=== PATIENT | male | born 1935 | race African-American/Black ===

== ENCOUNTER 2017-02-09 03:46 | Inpatient (IN) | payer MEDICARE, OTHER ==
[2017-02-09] VITALS (7 sets, daily range): BP systolic 143–186; BP diastolic 67–104; PULSE 68–110; RESP 16–20; TEMP 97.7–99; O2SAT 97–100
[~2017-02-09] VITALS: Ht 185.4 cm; Wt 95.3 kg
[2017-02-09 04:18] LABS: AUTOMATED NEUTROPHIL # 3.4 TH/MM3 (1.8-7.7); BASOPHIL % 0.7 % (0.0-2.0); EOSINOPHIL # 0.2 TH/MM3 (0-0.4); EOSINOPHIL % 3.5 % (0.0-4.0); HEMATOCRIT 38.3 % (39.0-51.0); HEMOGLOBIN 12.6 GM/DL (13.0-17.0); LYMPH % 27.1 % (9.0-44.0); LYMPHOCYTE # 1.6 TH/MM3 (1.0-4.8); MEAN CELL VOLUME 86.3 FL (80.0-100.0); MEAN CORPUSCULAR HEMOGLOBIN 28.3 PG (27.0-34.0); MEAN CORPUSCULAR HGB CONC 32.8 % (32.0-36.0); MEAN PLATELET VOLUME 7.1 FL (7.0-11.0); MONO % 9.5 % (0.0-8.0); MONOCYTE # 0.6 TH/MM3 (0-0.9); NEUT % 59.2 % (16.0-70.0); PLATELET COUNT 275 TH/MM3 (150-450); RED BLOOD COUNT 4.44 MIL/MM3 (4.50-5.90); RED CELL DISTRIBUTION WIDTH 13.1 % (11.6-17.2); WHITE BLOOD COUNT 5.8 TH/MM3 (4.0-11.0)
[2017-02-09 04:36] LABS: ALT (GPT) 19 U/L (12-78); AST (GOT) 26 U/L (15-37); BICARBONATE 29.9 MEQ/L (21.0-32.0); BLOOD UREA NITROGEN 13 MG/DL (7-18); CALCIUM 9.5 MG/DL (8.5-10.1); CHLORIDE 103 MEQ/L (98-107); CREATININE 1.02 MG/DL (0.60-1.30); GLOMERULAR FILTRATION RATE 70 ML/MIN (>89); GLUCOSE,RANDOM 105 MG/DL (74-106); SODIUM (NA) 140 MEQ/L (136-145)
[2017-02-09 04:47] LABS: ALKALINE PHOSPHATASE 75 U/L (45-117); TOTAL BILIRUBIN ADULT 0.6 MG/DL (0.2-1.0); TOTAL PROTEIN 8.9 GM/DL (6.4-8.2)
--- NOTE | 2017-02-09 05:16 | PD ---
HPI Chief Complaint: Psychiatric Symptoms Time Seen by Provider: 04:05 Travel History International Travel<30 days: No Contact w/Intl Traveler<30days: No Traveled to known affect area: No History of Present Illness HPI 81-year-old black male presents to emergency department under G[place]a act by PD. According to G[place]a act the patient has been noncompliant with his medicines. He has been making statements that he was going to hurt his because she was stealing his money. He states that she and other women haven't been attempting to get his money. He states that he is not incompetent. According to medical record he suffers from Alzheimer's disease. Patient states that he is retired from the [employer]. He worked there for 35 years. He denies any toxic ingestions. No recent illness. He denies any drugs, alcohol or tobacco. No homicidal or suicidal ideation. PFSH Past Medical History Narrative Medical Alzheimer, hypertension, facial trauma Alzheimer's Disease: Yes Diminished Hearing: No Hypertension: Yes Tetanus Vaccination: Unknown Past Surgical History Surgical History: No Previous Surgery Social History Alcohol Use: No Tobacco Use: No Substance Use: No Allergies-Medications (Allergen,Severity, Reaction): Coded Allergies: No Known Allergies (Unverified , 02/09/17) Reported Meds & Prescriptions Reported Meds & Active Scripts Active Active Prescriptions or Reported Medications Unobtainable Review of Systems General / Constitutional: No: Fever Eyes: No: Visual changes HENT: No: Headaches Cardiovascular: No: Chest Pain or Discomfort Respiratory: No: Shortness of Breath Gastrointestinal: No: Abdominal Pain Genitourinary: No: Dysuria Musculoskeletal: No: Pain Skin: No Rash Neurologic: No: Weakness Psychiatric: Positive: Mood Disorder, No: Anxiety, Depression, Suicidal Ideations, Disorder of Thought, Substance Abuse, Homicidal Ideation Endocrine: No: Polydipsia Hematologic/Lymphatic: No: Easy Bruising Physical Exam Narrative GENERAL: Well-nourished, well-developed patient. SKIN: Warm and dry. HEAD: Patient has evidence of prior left facial trauma. His left eye is somewhat recessed. EYES: No scleral icterus. No injection or drainage. The left eye is irregular and the pupil is poorly responsive. Positive mucoid drainage of the left eye. ENT: No nasal drainage noted. Mucous membranes pink. Airway patent. NECK: Supple, trachea midline. Moves head freely without obvious discomfort. CARDIOVASCULAR: Regular rate and rhythm without murmurs, gallops, or rubs. RESPIRATORY: Breath sounds equal bilaterally. No accessory muscle use. GASTROINTESTINAL: Abdomen soft, non-tender, nondistended. EXTREMITIES: No cyanosis or edema. BACK: Nontender without obvious deformity. No CVA tenderness. NEURO: Patient is alert and oriented. no sensorimotor deficits. Nonfocal. Normal speech. PSYCH: No delusions. No auditory or visual hallucinations. Data Data Last Documented VS Vital Signs Date Time Temp Pulse Resp B/P (MAP) Pulse Ox O2 Delivery O2 Flow Rate FiO2 02/09/17 04:22 99.0 106 20 172/85 (114) 100 Orders Orders Complete Blood Count With Diff (02/09/17 04:05) Comprehensive Metabolic Panel (02/09/17 04:05) Thyroid Stimulating Hormone (02/09/17 04:05) Urinalysis - C+S If Indicated (02/09/17 04:05) Psych Screen (02/09/17 04:05) Drug Screen, Random Urine (02/09/17 04:05) Alcohol (Ethanol) (02/09/17 04:05) Labs Laboratory Tests Test 02/09/17 04:05 White Blood Count 5.8 TH/MM3 Red Blood Count 4.44 MIL/MM3 Hemoglobin 12.6 GM/DL Hematocrit 38.3 % Mean Corpuscular Volume 86.3 FL Mean Corpuscular Hemoglobin 28.3 PG Mean Corpuscular Hemoglobin Concent 32.8 % Red Cell Distribution Width 13.1 % Platelet Count 275 TH/MM3 Mean Platelet Volume 7.1 FL Neutrophils (%) (Auto) 59.2 % Lymphocytes (%) (Auto) 27.1 % Monocytes (%) (Auto) 9.5 % Eosinophils (%) (Auto) 3.5 % Basophils (%) (Auto) 0.7 % Neutrophils # (Auto) 3.4 TH/MM3 Lymphocytes # (Auto) 1.6 TH/MM3 Monocytes # (Auto) 0.6 TH/MM3 Eosinophils # (Auto) 0.2 TH/MM3 Basophils # (Auto) 0.0 TH/MM3 CBC Comment DIFF FINAL Differential Comment Blood Urea Nitrogen 13 MG/DL Creatinine 1.02 MG/DL Random Glucose 105 MG/DL Total Protein 8.9 GM/DL Albumin 4.0 GM/DL Calcium Level 9.5 MG/DL Alkaline Phosphatase 75 U/L Aspartate Amino Transf (AST/SGOT) 26 U/L Alanine Aminotransferase (ALT/SGPT) 19 U/L Total Bilirubin 0.6 MG/DL Sodium Level 140 MEQ/L Potassium Level 3.5 MEQ/L Chloride Level 103 MEQ/L Carbon Dioxide Level 29.9 MEQ/L Anion Gap 7 MEQ/L Estimat Glomerular Filtration Rate 70 ML/MIN Thyroid Stimulating Hormone 3rd Gen 1.470 uIU/ML Ethyl Alcohol Level LESS THAN 3 MG/DL MDM Medical Decision Making Medical Screen Exam Complete: Yes Emergency Medical Condition: Yes Medical Record Reviewed: Yes Interpretation(s) Laboratory Tests Test 02/09/17 04:05 White Blood Count 5.8 TH/MM3 Red Blood Count 4.44 MIL/MM3 Hemoglobin 12.6 GM/DL Hematocrit 38.3 % Mean Corpuscular Volume 86.3 FL Mean Corpuscular Hemoglobin 28.3 PG Mean Corpuscular Hemoglobin Concent 32.8 % Red Cell Distribution Width 13.1 % Platelet Count 275 TH/MM3 Mean Platelet Volume 7.1 FL Neutrophils (%) (Auto) 59.2 % Lymphocytes (%) (Auto) 27.1 % Monocytes (%) (Auto) 9.5 % Eosinophils (%) (Auto) 3.5 % Basophils (%) (Auto) 0.7 % Neutrophils # (Auto) 3.4 TH/MM3 Lymphocytes # (Auto) 1.6 TH/MM3 Monocytes # (Auto) 0.6 TH/MM3 Eosinophils # (Auto) 0.2 TH/MM3 Basophils # (Auto) 0.0 TH/MM3 CBC Comment DIFF FINAL Differential Comment Blood Urea Nitrogen 13 MG/DL Creatinine 1.02 MG/DL Random Glucose 105 MG/DL Total Protein 8.9 GM/DL Albumin 4.0 GM/DL Calcium Level 9.5 MG/DL Alkaline Phosphatase 75 U/L Aspartate Amino Transf (AST/SGOT) 26 U/L Alanine Aminotransferase (ALT/SGPT) 19 U/L Total Bilirubin 0.6 MG/DL Sodium Level 140 MEQ/L Potassium Level 3.5 MEQ/L Chloride Level 103 MEQ/L Carbon Dioxide Level 29.9 MEQ/L Anion Gap 7 MEQ/L Estimat Glomerular Filtration Rate 70 ML/MIN Thyroid Stimulating Hormone 3rd Gen 1.470 uIU/ML Ethyl Alcohol Level LESS THAN 3 MG/DL Differential Diagnosis MDM: High Differential diagnoses: Schizophrenia, schizoaffective disorder, bipolar, anxiety, depression, adjustment reaction, mood disorder NOS, ODD, depressive disorder NOS, dementia, dementia with agitation, psychosis NOS, substance induced mood disorder, DMDD, Asperger syndrome, infection,electrolyte abnormality, malingering. Narrative Course Mental health screening discussed with the patient. Psychiatric screen ordered. The patient is been medically cleared. This is medical clearance for psychiatric admission Diagnosis Primary Impression: Medical clearance for psychiatric admission Scripts Unable to Obtain Active Prescriptions or Reported Meds Condition: Eleazar Vaca Feb 09, 2017 05:16
[2017-02-09 07:04] LABS: BILIRUBIN, URINE NEG (NEG); BLOOD, URINE NEG (NEG); GLUCOSE,URINE NEG (NEG); KETONE, URINE TRACE mg/dL (NEG); MUCUS URINE FEW /lpf (OCC); NITRITE,URINE NEG (NEG); PH, URINE 6.5 (5.0-8.5); URINE COLOR YELLOW (YELLW/STRAW); URINE LEUKOCYTE ESTERASE NEG (NEG)
[2017-02-09] MEDS ORDERED: HYDR-3516 PO (08:58)
[2017-02-09] MEDS ORDERED: AMLO5TAB2 PO (08:58)
[2017-02-09] MEDS ORDERED: MELA5 PO (08:58)
[2017-02-09] MEDS ORDERED: DOCU100C15 PO (08:58)
[2017-02-09] MEDS ORDERED: MIRT30TA PO (08:58)
[2017-02-09] MEDS ORDERED: MAGNESIUM HYDROXIDE SUSP 30 ML CUP PO PRN (16:15)
[2017-02-09] MEDS ORDERED: ALUMINUM/MAGNESIUM/SIMETH 30 ML CUP PO PRN (16:15)
[2017-02-09] MEDS ORDERED: ACETAMINOPHEN 325 MG TAB PO PRN (16:15)
[2017-02-09] MEDS ORDERED: LORazepam 1 MG TAB PO PRN (16:15)
[2017-02-09] MEDS ORDERED: LORazepam 2 MG/ML VIAL IM PRN (16:15)
--- NOTE | 2017-02-09 16:23 | HHI.HP ---
Provisional Diagnosis Admission Date [place]. Dementia with behavioral disturbance Certification of Person's Competence To Provide Express and Informed Consent I have personally examined Zachariah Haile , a person being served at [facility], [place] on, Feb 09, 2017 16:13. Express and informed consent means consent voluntarily given in writing, by a competent person, after sufficient explanation and disclosure of the subject matter involved to enable the person to make a knowing and willful decision without any element of force, fraud, deceit, duress, or other form of constraint or coercion. This person is 18 years of age or older, is not now known to be incompetent to consent to treatment with a guardian advocate, and does not have a health care surrogate or proxy currently making medical treatment decisions. I have found this person to be one of the following: [] Competent to provide express and informed consent, as defined above, for voluntary admission to this facility and is competent to provide express and informed consent for treatment. He/she has the consistent capacity to make well reasoned, willful, and knowing decisions concerning his or her medical or mental health treatment. The person fully and consistently understands the purpose of the admission for examination/placement and is fully capable of personally exercising all rights assured [place] [X] Incompetent to provide express and informed consent to voluntary admission, and this is incompetent to provide express and informed consent to treatment. The person must be transferred to involuntary status and a petition for a guardian advocate filed with the Circuit Court. [] Refusing to provide express and informed consent to voluntary admission but is competent to provide express and informed consent for treatment. The person must be discharged or transferred to involuntary status. Form shall be completed within 24 hours of a person's arrival at the receiving facility and filed in the clinical record of each person: 1. Admitted on a voluntary basis 2. Permitted to provide express and informed consent to his/her own treatment 3. Allowed to transfer from involuntary to voluntary status 4. Prior to permitting a person to consent to his or her own treatment after having been previously found incompetent to consent to treatment. History of Present Illness Capacity: Lacks Capacity HPI 81-year-old male, well known to the staff here at [facility], being admitted under a Gatica act after threatening to kill his . Patient reported a voice told him not to kill her. However, he is stating to the emergency room physician and this physician that his of 45 years has been stealing his money. He also makes nonsensical statements such as paying for his daughter's Camaro, even though he is not allowed to drive, just because he feels like it. (His daughter states this is not true.) He has been noncompliant with his prescribed medications. He leaves his home without communicating with family members and apparently gets lost for significant periods of time. The patient is a poor historian and does not know where he is or his situation. He is disoriented to time, date, day as well. He is only oriented to person. He does state that his is stealing his money although there is no evidence to support this. He also reports he's been multiple times, although there is no evidence to support this either. He does not abuse alcohol or drugs. When contacted, his family feels they can no longer care for him at home. Apparently, in addition to not taking his medicines, he does not adequately eat or drink or sleep. He does appear under nourished. Review of Systems Psychiatric: COMPLAINS OF: Confusion, Mood changes, Agitation Except as stated in HPI: all other systems reviewed are Neg Past Psych History Psychological trauma history Unknown psychological trauma. Patient is a poor historian. Violence risk - others (6 mos) Moderate to high. Violence risk - self (6 mos) Moderate to high. Substance Abuse History Drugs/Alcohol past 12 months Denied. Past Family Social History Coded Allergies: No Known Allergies (Unverified , 02/09/17) Reported Medications Docusate Sodium (Docusate Sodium) 100 Mg Cap, 100 MG PO BID, #60 CAP 0 Refills 02/09/17 Melatonin (Melatonin) 5 Mg Tab, 3 MG PO HS for Provide Good Sleep, TAB 0 Refills 02/09/17 Hydrocodone-Acetaminophen (Hydrocodone-Acetaminophen) 5-325 mg Tab, 1 TAB PO Q6H Y for PAIN, TAB 0 Refills 02/09/17 Mirtazapine (Mirtazapine) 30 Mg Tab, 30 MG PO HS for Depression Control, #30 TAB 0 Refills 02/09/17 Amlodipine (Amlodipine) 5 Mg Tab, 5 MG PO DAILY for Blood Pressure Management, # 30 TAB 0 Refills 02/09/17 Family Psych History Unknown. Patient poor historian. Social History Patient usually does live with his and family. Family is supportive although may not be able to care for him in the future. Patient worked on the railroad for many years. He is retired and unemployed at this time. He denies a history of alcoholism and drug abuse. Patient's Strengths (min. 2) Verbal and has access to healthcare. Physical Exam GENERAL: SKIN: Warm and dry. HEAD: Normocephalic. EYES: No scleral icterus. No injection or drainage. NECK: Supple, trachea midline. No JVD or lymphadenopathy. CARDIOVASCULAR: Regular rate and rhythm without murmurs, gallops, or rubs. RESPIRATORY: Breath sounds equal bilaterally. No accessory muscle use. GASTROINTESTINAL: Abdomen soft, non-tender, nondistended. MUSCULOSKELETAL: No cyanosis, or edema. BACK: Nontender without obvious deformity. No CVA tenderness. Vital Signs Vital Signs Date Time Temp Pulse Resp B/P (MAP) Pulse Ox O2 Delivery O2 Flow Rate FiO2 02/09/17 10:19 110 20 160/104 (122) 97 Room Air 02/09/17 04:22 99.0 Lab Results Test 02/09/17 04:05 02/09/17 06:30 White Blood Count 5.8 TH/MM3 Red Blood Count 4.44 MIL/MM3 Hemoglobin 12.6 GM/DL Hematocrit 38.3 % Mean Corpuscular Volume 86.3 FL Mean Corpuscular Hemoglobin 28.3 PG Mean Corpuscular Hemoglobin Concent 32.8 % Red Cell Distribution Width 13.1 % Platelet Count 275 TH/MM3 Mean Platelet Volume 7.1 FL Neutrophils (%) (Auto) 59.2 % Lymphocytes (%) (Auto) 27.1 % Monocytes (%) (Auto) 9.5 % Eosinophils (%) (Auto) 3.5 % Basophils (%) (Auto) 0.7 % Neutrophils # (Auto) 3.4 TH/MM3 Lymphocytes # (Auto) 1.6 TH/MM3 Monocytes # (Auto) 0.6 TH/MM3 Eosinophils # (Auto) 0.2 TH/MM3 Basophils # (Auto) 0.0 TH/MM3 CBC Comment DIFF FINAL Differential Comment Blood Urea Nitrogen 13 MG/DL Creatinine 1.02 MG/DL Random Glucose 105 MG/DL Total Protein 8.9 GM/DL Albumin 4.0 GM/DL Calcium Level 9.5 MG/DL Alkaline Phosphatase 75 U/L Aspartate Amino Transf (AST/SGOT) 26 U/L Alanine Aminotransferase (ALT/SGPT) 19 U/L Total Bilirubin 0.6 MG/DL Sodium Level 140 MEQ/L Potassium Level 3.5 MEQ/L Chloride Level 103 MEQ/L Carbon Dioxide Level 29.9 MEQ/L Anion Gap 7 MEQ/L Estimat Glomerular Filtration Rate 70 ML/MIN Thyroid Stimulating Hormone 3rd Gen 1.470 uIU/ML Ethyl Alcohol Level LESS THAN 3 MG/DL Urine Color YELLOW Urine Turbidity CLEAR Urine pH 6.5 Urine Specific Marlin 1.017 Urine Protein TRACE mg/dL Urine Glucose (UA) NEG mg/dL Urine Ketones TRACE mg/dL Urine Occult Blood NEG Urine Nitrite NEG Urine Bilirubin NEG Urine Urobilinogen LESS THAN 2.0 MG/DL Urine Leukocyte Esterase NEG Urine RBC 6 /hpf Urine WBC 1 /hpf Urine Mucus FEW /lpf Microscopic Urinalysis Comment CULT NOT INDICATED Urine Opiates Screen NEG Urine Barbiturates Screen NEG Urine Amphetamines Screen NEG Urine Benzodiazepines Screen NEG Urine Cocaine Screen NEG Urine Cannabinoids Screen NEG Mental Status Examination Appearance: Disheveled Consciousness: Alert Orientation: Person Motor Activity: Normal gait Speech: Other Language: Adequate Fund of Knowledge: Inadequate Attention and Concentration: Easily Distracted Memory: Impaired Mood: Angry Affect: Labile Thought Process & Associations: Disorganized Thought Content: Hallucinations, Preoccupations, Delusional Hallucination Type: Auditory Delusion Type: None, Paranoid Suicidal Ideation: No Suicidal Plan: No Suicidal Intention: No Homicidal Ideation: Yes Homicidal Plan: Yes Homicidal Intention: No Insight: Poor Judgment: Poor Assessment & Plan Problem List: (1) Alzheimer's dementia with behavioral disturbance ICD Codes: G30.9 - Alzheimer's disease, unspecified; F02.81 - Dementia in other diseases classified elsewhere with behavioral disturbance (2) Dementia in other diseases classified elsewhere with behavioral disturbance ICD Codes: F02.81 - Dementia in other diseases classified elsewhere with behavioral disturbance Assessment & Plan Estimated LOS: days. 81-year-old male with obvious dementia, brought in under a Gatica act for threatening to kill his . Patient is experiencing auditory hallucinations and paranoid delusions that his is stealing from him. He has been noncompliant with his medications and not eating or drinking fluids adequately well. He is felt to be at high risk for harming others and not caring for himself. For these reasons he is being admitted for further evaluation and treatment. This physician has ordered a CBC and comprehensive metabolic panel to determine if any infectious process or metabolic process is causing or contributing to the patient's confusion, psychosis and agitation. Additionally, this physician has ordered a hep us consult to help stabilize the patient on his antihypertensive medicines, etc. The patient remains and competent to provide informed consent and therefore this physician filed civil commitment and guardian advocate paperwork. Also ordered were hemoglobin A1c and a lipid panel to determine if the patient is at risk for cardiovascular disease. Furthermore, this physician ordered thyroid stimulating hormone levels, vitamin B-12 levels and vitamin D level as deficiencies in these areas can also cause or contribute to his confusion and psychosis. An EKG was ordered to determine the patient's cardiac conduction status prior to significantly altering his psychotropic medicines which might adversely affect the electrical system of his heart. This physician spoke to nurse Hernandez regarding the patient's recent behavior. He requires much redirection. Finally, case management will also be involved to assist with further information gathering and disposition planning. Neptali Muro MD Feb 09, 2017 16:23
[2017-02-09] MEDS: MIRTAZAPINE 15 MG TAB PO SCH (21:00)
[2017-02-09] MEDS: DOCUSATE SODIUM 100 MG CAP PO SCH (21:00)
[2017-02-10 06:00] VITALS: BP 157/68; PULSE 71; RESP 17; TEMP 98.2; O2SAT 97
[2017-02-10] MEDS: DOCUSATE SODIUM 100 MG CAP PO SCH ×2 (08:10→20:32)
[2017-02-10] MEDS: amLODIPine BESYLATE 5 MG TAB PO SCH (08:10)
[2017-02-10 10:12] LABS: AUTOMATED NEUTROPHIL # 2.9 TH/MM3 (1.8-7.7); BASOPHIL % 0.6 % (0.0-2.0); EOSINOPHIL # 0.3 TH/MM3 (0-0.4); EOSINOPHIL % 5.9 % (0.0-4.0); HEMATOCRIT 38.8 % (39.0-51.0); LYMPH % 27.8 % (9.0-44.0); LYMPHOCYTE # 1.4 TH/MM3 (1.0-4.8); MEAN CORPUSCULAR HEMOGLOBIN 29.2 PG (27.0-34.0); MEAN CORPUSCULAR HGB CONC 33.5 % (32.0-36.0); MEAN PLATELET VOLUME 7.3 FL (7.0-11.0); MONO % 8.6 % (0.0-8.0); MONOCYTE # 0.4 TH/MM3 (0-0.9); NEUT % 57.1 % (16.0-70.0); PLATELET COUNT 279 TH/MM3 (150-450); RED BLOOD COUNT 4.46 MIL/MM3 (4.50-5.90); WHITE BLOOD COUNT 5.2 TH/MM3 (4.0-11.0)
[2017-02-10 10:34] LABS: ALBUMIN 3.5 GM/DL (3.4-5.0); AST (GOT) 21 U/L (15-37); BICARBONATE 31.5 MEQ/L (21.0-32.0); BLOOD UREA NITROGEN 12 MG/DL (7-18); CALCIUM 9.7 MG/DL (8.5-10.1); CHLORIDE 100 MEQ/L (98-107); CREATININE 0.92 MG/DL (0.60-1.30); GLOMERULAR FILTRATION RATE 96 ML/MIN (>89); GLUCOSE,RANDOM 101 MG/DL (74-106); SODIUM (NA) 140 MEQ/L (136-145)
[2017-02-10 10:35] LABS: ALT (GPT) 18 U/L (12-78); CHOLESTEROL 184 MG/DL (120-200)
--- NOTE | 2017-02-10 10:38 | PD.CONS ---
[facility] Reason for Consult Medical management Primary Care Physician Unknown Diagnoses: History of Present Illness Patient is a 81-year-old gentleman currently in the psychiatric unit under a Gatica act for threatening to kill his . This was not actually performed. Patient has had advancing dementia per chart review. We have been asked to help regarding medical management Review of Systems Constitutional: DENIES: Diaphoretic episodes, Fatigue, Fever, Weight gain, Weight loss, Chills, Dizziness, Change in appetite Endocrine: DENIES: Heat/cold intolerance, Polydipsia, Polyuria, Polyphagia Eyes: DENIES: Blurred vision, Diplopia, Eye inflammation, Eye pain, Vision loss , Photosensitivity Ears, nose, mouth, throat: DENIES: Tinnitus, Hearing loss, Vertigo, Nasal discharge Respiratory: DENIES: Apneas, Cough, Snoring, Wheezing, Hemoptysis Cardiovascular: DENIES: Chest pain, Palpitations, Syncope, Dyspnea on Exertion Gastrointestinal: DENIES: Abdominal pain, Black stools, Bloody stools Musculoskeletal: DENIES: Joint pain, Muscle aches, Stiffness, Joint Swelling Integumentary: DENIES: Abnormal pigmentation, Nail changes Hematologic/lymphatic: DENIES: Bruising, Lymphadenopathy Immunologic/allergic: DENIES: Eczema, Urticaria Neurologic: DENIES: Abnormal gait, Headache, Localized weakness Psychiatric: COMPLAINS OF: Anxiety, Confusion, Mood changes, Depression, Agitation Except as stated in HPI: all other systems reviewed are Neg Past Family Social History Allergies: Coded Allergies: No Known Allergies (Unverified , 02/09/17) Past Medical History Alzheimer's dementia Hypertension History of facial trauma Constipation Past Surgical History History of facial trauma Reported Medications Reported Meds & Active Scripts Active Reported Docusate Sodium 100 Mg Cap 100 Mg PO BID Melatonin 5 Mg Tab 3 Mg PO HS Hydrocodone-Acetaminophen 5-325 mg Tab 1 Tab PO Q6H PRN Mirtazapine 30 Mg Tab 30 Mg PO HS Amlodipine (Amlodipine Besylate) 5 Mg Tab 5 Mg PO DAILY Active Ordered Medications Current Medications Lorazepam (Ativan) 1 mg Q6H PRN PO MODERATE TO SEVERE ANXIETY; Start 02/09/17 at 16:15 Lorazepam (Ativan Inj) 1 mg Q6H PRN IM MODERATE TO SEVERE ANXIETY; Start at 16:15 Acetaminophen (Tylenol) 650 mg Q4H PRN PO Pain 1-5 or Temp >101F; Start at 16:15 Magnesium Hydroxide (Milk Of Magnesia Liq) 30 ml DAILY PRN PO CONSTIPATION; Start 02/09/17 at 16:15 Al Hydrox/Mg Hydrox/Simethicone (Mag-Al Plus Susp Liq) 30 ml Q6H PRN PO DYSPEPSIA; Start 02/09/17 at 16:15 Amlodipine Besylate (Norvasc) 5 mg DAILY PO Last administered on 02/10/17at 08:10 ; Start 02/10/17 at 09:00 Docusate Sodium (Colace) 100 mg BID PO Last administered on 02/10/17at 08:10; Start 02/09/17 at 21:00 Acetaminophen/ Hydrocodone Bitart (Weiser 5-325 Mg) 1 tab Q6H PRN PO PAIN 6-10 ; Start 02/09/17 at 16:15 Mirtazapine (Remeron) 30 mg HS PO Last administered on 02/09/17at 21:00; Start at 21:00 Family History Unobtainable from patient Social History Patient lived with Retired from the [employer] Physical Exam Vital Signs Vital Signs Date Time Temp Pulse Resp B/P (MAP) Pulse Ox O2 Delivery O2 Flow Rate FiO2 02/10/17 06:00 98.2 71 17 157/68 (97) 97 02/09/17 21:15 97.7 90 16 180/79 (112) 99 02/09/17 20:54 02/09/17 19:56 98.4 68 16 165/70 (101) 100 Room Air Physical Exam GENERAL: This is a well-nourished, well-developed patient, in no apparent distress. No current complaints SKIN: No rashes, ecchymoses or lesions. Cool and dry. HEAD: Atraumatic. Normocephalic. No temporal or scalp tenderness. EYES: Pupils equal round and reactive. Extraocular motions intact. No scleral icterus. No injection or drainage. ENT: Nose without bleeding, purulent drainage or septal hematoma. Throat without erythema, tonsillar hypertrophy or exudate. Uvula midline. Airway patent. NECK: Trachea midline. No JVD or lymphadenopathy. Supple, nontender, no meningeal signs. CARDIOVASCULAR: Regular rate and rhythm without murmurs, gallops, or rubs. RESPIRATORY: Clear to auscultation. Breath sounds equal bilaterally. No wheezes , rales, or rhonchi. GASTROINTESTINAL: Abdomen soft, non-tender, nondistended. No hepato-splenomegaly , or palpable masses. No guarding. MUSCULOSKELETAL: Extremities without clubbing, cyanosis, or edema. No joint tenderness, effusion, or edema noted. No calf tenderness. Negative Homans sign bilaterally. NEUROLOGICAL: Awake and alert. Cranial nerves II through XII intact. Motor and sensory grossly within normal limits. 4 out of 5 muscle strength in all muscle groups. Normal speech. Insight and judgment is limited Mood and behavior is somewhat inappropriate Laboratory Laboratory Tests Test 02/10/17 08:50 White Blood Count 5.2 Red Blood Count 4.46 Hemoglobin 13.0 Hematocrit 38.8 Mean Corpuscular Volume 87.0 Mean Corpuscular Hemoglobin 29.2 Mean Corpuscular Hemoglobin Concent 33.5 Red Cell Distribution Width 13.0 Platelet Count 279 Mean Platelet Volume 7.3 Neutrophils (%) (Auto) 57.1 Lymphocytes (%) (Auto) 27.8 Monocytes (%) (Auto) 8.6 Eosinophils (%) (Auto) 5.9 Basophils (%) (Auto) 0.6 Neutrophils # (Auto) 2.9 Lymphocytes # (Auto) 1.4 Monocytes # (Auto) 0.4 Eosinophils # (Auto) 0.3 Basophils # (Auto) 0.0 CBC Comment DIFF FINAL Differential Comment Result Diagram: 02/10/17 0850 02/09/17 0405 Assessment and Plan Assessment and Plan Currently under Gatica act per psychiatry Advancing dementia per psychiatry suspect Alzheimer's Chronic pain possibly from osteoarthritis Hypertension resume home medications Constipation continue on Colace We'll get a.m. labs and follow for any other issues that may arise Code Status Full code Discussed Condition With RN and patient Louie Reynoso DO Feb 10, 2017 10:38
[2017-02-10 11:01] LABS: ALKALINE PHOSPHATASE 74 U/L (45-117); CHOLESTEROL/ HDL RATIO 2.34 RATIO; HDL CHOLESTEROL 78.5 MG/DL (40.0-60.0); LDL CHOLESTEROL 93 MG/DL (0-99); TOTAL BILIRUBIN ADULT 0.6 MG/DL (0.2-1.0); TOTAL PROTEIN 8.5 GM/DL (6.4-8.2); TRIGLYCERIDES 61 MG/DL (42-150)
--- NOTE | 2017-02-10 15:18 | HHI.PYPN ---
Subjective Remarks Patient initially seen by Dr. Neptali Muro who did the initial psychiatric evaluation and also did first opinion petition supporting Gatica act. I have done the initial psychiatric template orders. Patient seen by me with nurse Constantin , is a in slender tall Afro-Micronesian male appears younger than her stated age is calm and pleasant with me though diffusely confused. He is unaware of the behaviors that got him into this facility feels that somebody took advantage of him. I agree with Dr. Muro patient does meet criteria for involuntary psychiatric hospitalization under the Gatica act thus I have done second opinion petition supporting Gatica act Review of Systems Except as stated in HPI: all other systems reviewed are Neg Mental Status Examination Appearance: Disheveled Consciousness: Alert Orientation: Person Motor Activity: Normal gait Speech: Other Language: Adequate Fund of Knowledge: Inadequate Attention and Concentration: Easily Distracted Memory: Impaired Mood: Angry Affect: Labile Thought Process & Associations: Disorganized Thought Content: Hallucinations, Preoccupations, Delusional Hallucination Type: Auditory Delusion Type: None, Paranoid Suicidal Ideation: No Suicidal Plan: No Suicidal Intention: No Homicidal Ideation: Yes Homicidal Plan: Yes Homicidal Intention: No Insight: Poor Judgment: Poor Results Labs Test 02/10/17 08:50 White Blood Count 5.2 TH/MM3 Red Blood Count 4.46 MIL/MM3 Hemoglobin 13.0 GM/DL Hematocrit 38.8 % Mean Corpuscular Volume 87.0 FL Mean Corpuscular Hemoglobin 29.2 PG Mean Corpuscular Hemoglobin Concent 33.5 % Red Cell Distribution Width 13.0 % Platelet Count 279 TH/MM3 Mean Platelet Volume 7.3 FL Neutrophils (%) (Auto) 57.1 % Lymphocytes (%) (Auto) 27.8 % Monocytes (%) (Auto) 8.6 % Eosinophils (%) (Auto) 5.9 % Basophils (%) (Auto) 0.6 % Neutrophils # (Auto) 2.9 TH/MM3 Lymphocytes # (Auto) 1.4 TH/MM3 Monocytes # (Auto) 0.4 TH/MM3 Eosinophils # (Auto) 0.3 TH/MM3 Basophils # (Auto) 0.0 TH/MM3 CBC Comment DIFF FINAL Differential Comment Blood Urea Nitrogen 12 MG/DL Creatinine 0.92 MG/DL Random Glucose 101 MG/DL Total Protein 8.5 GM/DL Albumin 3.5 GM/DL Calcium Level 9.7 MG/DL Alkaline Phosphatase 74 U/L Aspartate Amino Transf (AST/SGOT) 21 U/L Alanine Aminotransferase (ALT/SGPT) 18 U/L Total Bilirubin 0.6 MG/DL Sodium Level 140 MEQ/L Potassium Level 3.9 MEQ/L Chloride Level 100 MEQ/L Carbon Dioxide Level 31.5 MEQ/L Anion Gap 9 MEQ/L Estimat Glomerular Filtration Rate 96 ML/MIN Triglycerides Level 61 MG/DL Cholesterol Level 184 MG/DL LDL Cholesterol 93 MG/DL HDL Cholesterol 78.5 MG/DL Cholesterol/HDL Ratio 2.34 RATIO Vitamin B12 Level 805 PG/ML 25-Hydroxy Vitamin D Total 20.2 ng/ML Thyroid Stimulating Hormone 3rd Gen 0.690 uIU/ML Vitals/IOs Vital Signs Date Time Temp Pulse Resp B/P (MAP) Pulse Ox O2 Delivery O2 Flow Rate FiO2 02/10/17 06:00 98.2 71 17 157/68 (97) 97 02/09/17 19:56 Room Air Intake and Output 02/10/17 02/10/17 02/11/17 08:00 16:00 00:00 Intake Total 240 ml 240 ml Balance 240 ml 240 ml Assessment & Plan Problem List: (1) Dementia in other diseases classified elsewhere with behavioral disturbance ICD Codes: F02.81 - Dementia in other diseases classified elsewhere with behavioral disturbance (2) ALZHEIMER'S DISEASE WITH LATE ONSET ICD Codes: G30.1 - ALZHEIMER'S DISEASE WITH LATE ONSET Assessment & Plan Estimated LOS: days patient confused demented, that this diagnosis no behavioral problems. Need further time to observe and assess patient will continue medications per the med reconciliation Justification for Cont. Inpt. At this time patient will decompensate and placed a lower level of care Discharge Planning Needs to be determined Request HC Surrog/Guard Advoc?: Yes Beni Moreno MD Feb 10, 2017 15:18
[2017-02-10 16:26] LABS: HEMOGLOBIN A1C 4.7 % (4.3-6.0)
[2017-02-10 18:00] VITALS: BP 158/70; PULSE 75; RESP 18; TEMP 97.3; O2SAT 98
[2017-02-10] MEDS: MIRTAZAPINE 15 MG TAB PO SCH (20:32)
--- NOTE | 2017-02-10 22:43 | EKG ---
Date Performed: 02/10/2017 Time Performed: 10:46:31 PTAGE: 81 years EKG: Sinus rhythm NORMAL ECG NO PREVIOUS TRACING DOCTOR: Jodi Huffman Interpretating Date/Time 02/10/2017 22:42:13
[2017-02-11 05:44] VITALS: BP 165/74; PULSE 85; RESP 20; TEMP 98.4; O2SAT 96
[2017-02-11] MEDS: DOCUSATE SODIUM 100 MG CAP PO SCH ×2 (08:27→21:45)
[2017-02-11] MEDS: amLODIPine BESYLATE 5 MG TAB PO SCH (08:27)
--- NOTE | 2017-02-11 11:00 | HHI.PR ---
Subjective Remarks Patient is a 81-year-old gentleman currently in the psychiatric unit under a Gatica act for threatening to kill his . This was not actually performed. Patient has had advancing dementia per chart review. We have been asked to help regarding medical management 1-5 SEEN IN HIS ROOM NO NEW COMPLAINTS DW RN AND PT Objective Vitals Vital Signs Date Time Temp Pulse Resp B/P (MAP) Pulse Ox O2 Delivery O2 Flow Rate FiO2 02/11/17 05:44 98.4 85 20 165/74 (104) 96 02/10/17 18:00 97.3 75 18 158/70 (99) 98 I/O 02/10/17 02/10/17 02/10/17 02/11/17 02/11/17 02/11/17 07:00 15:00 23:00 07:00 15:00 23:00 Intake Total 480 ml 240 ml Balance 480 ml 240 ml Intake Oral 480 ml 240 ml # Voids 3 Result Diagram: 02/10/17 0850 02/10/17 0850 Other Results Laboratory Tests Test 02/09/17 04:05 02/09/17 06:30 02/10/17 08:50 White Blood Count 5.8 TH/MM3 5.2 TH/MM3 Red Blood Count 4.44 MIL/MM3 4.46 MIL/MM3 Hemoglobin 12.6 GM/DL 13.0 GM/DL Hematocrit 38.3 % 38.8 % Mean Corpuscular Volume 86.3 FL 87.0 FL Mean Corpuscular Hemoglobin 28.3 PG 29.2 PG Mean Corpuscular Hemoglobin Concent 32.8 % 33.5 % Red Cell Distribution Width 13.1 % 13.0 % Platelet Count 275 TH/MM3 279 TH/MM3 Mean Platelet Volume 7.1 FL 7.3 FL Neutrophils (%) (Auto) 59.2 % 57.1 % Lymphocytes (%) (Auto) 27.1 % 27.8 % Monocytes (%) (Auto) 9.5 % 8.6 % Eosinophils (%) (Auto) 3.5 % 5.9 % Basophils (%) (Auto) 0.7 % 0.6 % Neutrophils # (Auto) 3.4 TH/MM3 2.9 TH/MM3 Lymphocytes # (Auto) 1.6 TH/MM3 1.4 TH/MM3 Monocytes # (Auto) 0.6 TH/MM3 0.4 TH/MM3 Eosinophils # (Auto) 0.2 TH/MM3 0.3 TH/MM3 Basophils # (Auto) 0.0 TH/MM3 0.0 TH/MM3 CBC Comment DIFF FINAL DIFF FINAL Differential Comment Blood Urea Nitrogen 13 MG/DL 12 MG/DL Creatinine 1.02 MG/DL 0.92 MG/DL Random Glucose 105 MG/DL 101 MG/DL Total Protein 8.9 GM/DL 8.5 GM/DL Albumin 4.0 GM/DL 3.5 GM/DL Calcium Level 9.5 MG/DL 9.7 MG/DL Alkaline Phosphatase 75 U/L 74 U/L Aspartate Amino Transf (AST/SGOT) 26 U/L 21 U/L Alanine Aminotransferase (ALT/SGPT) 19 U/L 18 U/L Total Bilirubin 0.6 MG/DL 0.6 MG/DL Sodium Level 140 MEQ/L 140 MEQ/L Potassium Level 3.5 MEQ/L 3.9 MEQ/L Chloride Level 103 MEQ/L 100 MEQ/L Carbon Dioxide Level 29.9 MEQ/L 31.5 MEQ/L Anion Gap 7 MEQ/L 9 MEQ/L Estimat Glomerular Filtration Rate 70 ML/MIN 96 ML/MIN Thyroid Stimulating Hormone 3rd Gen 1.470 uIU/ML 0.690 uIU/ML Ethyl Alcohol Level LESS THAN 3 MG/DL Urine Color YELLOW Urine Turbidity CLEAR Urine pH 6.5 Urine Specific Weld 1.017 Urine Protein TRACE mg/dL Urine Glucose (UA) NEG mg/dL Urine Ketones TRACE mg/dL Urine Occult Blood NEG Urine Nitrite NEG Urine Bilirubin NEG Urine Urobilinogen LESS THAN 2.0 MG/DL Urine Leukocyte Esterase NEG Urine RBC 6 /hpf Urine WBC 1 /hpf Urine Mucus FEW /lpf Microscopic Urinalysis Comment CULT NOT INDICATED Urine Opiates Screen NEG Urine Barbiturates Screen NEG Urine Amphetamines Screen NEG Urine Benzodiazepines Screen NEG Urine Cocaine Screen NEG Urine Cannabinoids Screen NEG Hemoglobin A1c 4.7 % Triglycerides Level 61 MG/DL Cholesterol Level 184 MG/DL LDL Cholesterol 93 MG/DL HDL Cholesterol 78.5 MG/DL Cholesterol/HDL Ratio 2.34 RATIO Vitamin B12 Level 805 PG/ML 25-Hydroxy Vitamin D Total 20.2 ng/ML Objective Remarks GENERAL: This is a well-nourished, well-developed patient, in no apparent distress. No current complaints SKIN: No rashes, ecchymoses or lesions. Cool and dry. HEAD: Atraumatic. Normocephalic. No temporal or scalp tenderness. EYES: Pupils equal round and reactive. Extraocular motions intact. No scleral icterus. No injection or drainage. ENT: Nose without bleeding, purulent drainage or septal hematoma. Throat without erythema, tonsillar hypertrophy or exudate. Uvula midline. Airway patent. NECK: Trachea midline. No JVD or lymphadenopathy. Supple, nontender, no meningeal signs. CARDIOVASCULAR: Regular rate and rhythm without murmurs, gallops, or rubs. RESPIRATORY: Clear to auscultation. Breath sounds equal bilaterally. No wheezes , rales, or rhonchi. GASTROINTESTINAL: Abdomen soft, non-tender, nondistended. No hepato-splenomegaly , or palpable masses. No guarding. MUSCULOSKELETAL: Extremities without clubbing, cyanosis, or edema. No joint tenderness, effusion, or edema noted. No calf tenderness. Negative Homans sign bilaterally. NEUROLOGICAL: Awake and alert. Cranial nerves II through XII intact. Motor and sensory grossly within normal limits. 4 out of 5 muscle strength in all muscle groups. Normal speech. Insight and judgment is limited Mood and behavior is somewhat inappropriate Procedures NONE Medications and IVs Current Medications Lorazepam (Ativan) 1 mg Q6H PRN PO MODERATE TO SEVERE ANXIETY; Start 02/09/17 at 16:15 Lorazepam (Ativan Inj) 1 mg Q6H PRN IM MODERATE TO SEVERE ANXIETY; Start at 16:15 Acetaminophen (Tylenol) 650 mg Q4H PRN PO Pain 1-5 or Temp >101F; Start at 16:15 Magnesium Hydroxide (Milk Of Magnesia Liq) 30 ml DAILY PRN PO CONSTIPATION; Start 02/09/17 at 16:15 Al Hydrox/Mg Hydrox/Simethicone (Mag-Al Plus Susp Liq) 30 ml Q6H PRN PO DYSPEPSIA; Start 02/09/17 at 16:15 Amlodipine Besylate (Norvasc) 5 mg DAILY PO Last administered on 02/11/17at 08:27 ; Start 02/10/17 at 09:00 Docusate Sodium (Colace) 100 mg BID PO Last administered on 02/11/17at 08:27; Start 02/09/17 at 21:00 Acetaminophen/ Hydrocodone Bitart ([place] 5-325 Mg) 1 tab Q6H PRN PO PAIN 6-10 ; Start 02/09/17 at 16:15 Mirtazapine (Remeron) 30 mg HS PO Last administered on 02/10/17at 20:32; Start at 21:00 Diphenhydramine HCl (Benadryl) 50 mg HS PRN PO INSOMNIA; Start 02/10/17 at 15:15 Hydroxyzine HCl (Atarax) 50 mg Q6H PRN PO ANXIETY; Start 02/10/17 at 15:15 A/P Assessment and Plan Currently under Gatica act per psychiatry Advancing dementia per psychiatry suspect Alzheimer's Chronic pain possibly from osteoarthritis Hypertension resume home medications Constipation continue on Colace WILL follow for any other issues that may arise Discharge Planning PENDING PSYCHIATRIC CLEARANCE Louie Reynoso DO Feb 11, 2017 11:00
--- NOTE | 2017-02-11 11:43 | HHI.PYPN ---
Subjective Remarks Patient seen in day room with nurse oCnstantin, patient alert continues diffusely confused to place time and situation, think she is in a buddhism. It appears she showing some mild bizarre behavior towards evening staff states he cannot with towel wrapped around had last night. Patient compliant medications no other problems noted Review of Systems Except as stated in HPI: all other systems reviewed are Neg Mental Status Examination Appearance: Disheveled Consciousness: Alert Orientation: Person Motor Activity: Normal gait Speech: Other Language: Adequate Fund of Knowledge: Inadequate Attention and Concentration: Easily Distracted Memory: Impaired Mood: Angry Affect: Labile Thought Process & Associations: Disorganized Thought Content: Hallucinations, Preoccupations, Delusional Hallucination Type: Auditory Delusion Type: None, Paranoid Suicidal Ideation: No Suicidal Plan: No Suicidal Intention: No Homicidal Ideation: Yes Homicidal Plan: Yes Homicidal Intention: No Insight: Poor Judgment: Poor Results Vitals/IOs Vital Signs Date Time Temp Pulse Resp B/P (MAP) Pulse Ox O2 Delivery O2 Flow Rate FiO2 02/11/17 05:44 98.4 85 20 165/74 (104) 96 02/09/17 19:56 Room Air Assessment & Plan Problem List: (1) Dementia in other diseases classified elsewhere with behavioral disturbance ICD Codes: F02.81 - Dementia in other diseases classified elsewhere with behavioral disturbance (2) ALZHEIMER'S DISEASE WITH LATE ONSET ICD Codes: G30.1 - ALZHEIMER'S DISEASE WITH LATE ONSET Assessment & Plan Estimated LOS: days patient continues confused and demented though no significant behavior problems, compliant medication Justification for Cont. Inpt. This time patient will decompensate and placed in a lower level of care Discharge Planning Placement may be problematic Request HC Surrog/Guard Advoc?: Yes Beni Moreno MD Feb 11, 2017 11:43
[2017-02-11 18:28] VITALS: BP 132/82; PULSE 100; RESP 20; TEMP 98.6; O2SAT 97
[2017-02-11] MEDS: MIRTAZAPINE 15 MG TAB PO SCH (21:45)
[2017-02-11] MEDS: hydrOXYzine HCL 50 MG TAB PO PRN ×2 (22:35→23:19)
[2017-02-12 06:07] VITALS: BP 149/68; PULSE 102; RESP 18; TEMP 97.3; O2SAT 96
[2017-02-12] MEDS: amLODIPine BESYLATE 5 MG TAB PO SCH (09:25)
[2017-02-12] MEDS: DOCUSATE SODIUM 100 MG CAP PO SCH ×2 (09:25→20:22)
[2017-02-12] MEDS: hydrOXYzine HCL 50 MG TAB PO PRN (11:00)
[2017-02-12] MEDS: CHOLECALCIFEROL (VIT D3) 1000 UNIT TAB PO SCH (13:45)
[2017-02-12] MEDS ORDERED: cloNIDine HCL 0.1 MG TAB PO PRN (13:45)
--- NOTE | 2017-02-12 15:10 | HHI.PR ---
Subjective Remarks Follow-up visit dementia, chronic pain, HTN, left eye drainage. Patient seen and examined today sitting in a chair. As per nursing, left eye has been draining, yellow drainage thick, crusted at times they've just cleaned eye. Patient was also agitated and was given antipsychotics and Ativan. Patient appears drowsy and lethargic. Objective Vitals Vital Signs Date Time Temp Pulse Resp B/P (MAP) Pulse Ox O2 Delivery O2 Flow Rate FiO2 02/12/17 06:07 97.3 102 18 149/68 (95) 96 02/11/17 18:28 98.6 100 20 132/82 (99) 97 I/O 02/11/17 02/11/17 02/11/17 02/12/17 02/12/17 02/12/17 07:00 15:00 23:00 07:00 15:00 23:00 Intake Total 120 ml 0 ml Balance 120 ml 0 ml Intake Oral 120 ml 0 ml # Voids 3 1 1 Result Diagram: 02/10/17 0850 02/10/17 0850 Objective Remarks GENERAL: This is a well-nourished, well-developed patient, in no apparent distress. SKIN: Warm and dry HEENT: Normocephalic.Nose without bleeding. Airway patent. Left eye with some redness, crusted mucoid drainage. Left Pupil irregular NECK: Trachea midline. No JVD. Supple. CARDIOVASCULAR: Regular rate and rhythm without murmurs, gallops, or rubs. RESPIRATORY: Clear to auscultation. Breath sounds equal bilaterally. No wheezes , rales, or rhonchi. GASTROINTESTINAL: Abdomen soft, non-tender, nondistended. Bowel Sounds normoactive x4. MUSCULOSKELETAL: Extremities without clubbing, cyanosis, or edema. NEUROLOGICAL: Lethargic. Moves all extremities. Nonverbal on exam. Procedures NONE A/P Problem List: (1) HTN (hypertension) ICD Code: I10 - Essential (primary) hypertension (2) Conjunctivitis ICD Code: H10.9 - Unspecified conjunctivitis (3) ALZHEIMER'S DISEASE WITH LATE ONSET ICD Code: G30.1 - ALZHEIMER'S DISEASE WITH LATE ONSET (4) Dementia in other diseases classified elsewhere with behavioral disturbance ICD Code: F02.81 - Dementia in other diseases classified elsewhere with behavioral disturbance Assessment and Plan Patient is a 81-year-old gentleman currently in the psychiatric unit under a Gatica act for threatening to kill his . Dementia with behavioral disturbances - Managed by psychiatry team Left eye injection, conjunctivitis - Cipro ointment 5 days - [facility] HTN, chronic - Continue amlodipine 5 mg daily, clonidine 0.1 mg when necessary - Monitor BP trend. Occasional increase in BP possibly secondary to agitation DVT prop early ambulation Danial Chavez Feb 12, 2017 15:10
--- NOTE | 2017-02-12 16:10 | HHI.PYPN ---
Subjective Remarks Patient was seen and case discussed with nursing. Per nursing, this morning patient was very exit seeking and psychotic. Believing his TV was stolen. He received 1 mg of Ativan. For this interview, patient is obtunded and minimally engaged. Alert and oriented 1. Mental Status Examination Appearance: Disheveled Consciousness: Alert Orientation: Person Motor Activity: Normal gait Speech: Other Language: Adequate Fund of Knowledge: Inadequate Attention and Concentration: Easily Distracted Memory: Impaired Mood: Angry Affect: Labile Thought Process & Associations: Disorganized Thought Content: Hallucinations, Preoccupations, Delusional Hallucination Type: Auditory Delusion Type: None, Paranoid Suicidal Ideation: No Suicidal Plan: No Suicidal Intention: No Homicidal Ideation: No Homicidal Plan: No Homicidal Intention: No Insight: Poor Judgment: Poor Results Vitals/IOs Vital Signs Date Time Temp Pulse Resp B/P (MAP) Pulse Ox O2 Delivery O2 Flow Rate FiO2 02/12/17 06:07 97.3 102 18 149/68 (95) 96 02/09/17 19:56 Room Air Intake and Output 02/12/17 02/12/17 02/13/17 08:00 16:00 00:00 Intake Total 0 ml Balance 0 ml Assessment & Plan Problem List: (1) Dementia in other diseases classified elsewhere with behavioral disturbance ICD Codes: F02.81 - Dementia in other diseases classified elsewhere with behavioral disturbance (2) ALZHEIMER'S DISEASE WITH LATE ONSET ICD Codes: G30.1 - ALZHEIMER'S DISEASE WITH LATE ONSET Assessment & Plan We will stop anymore when necessary Ativan Justification for Cont. Inpt. Patient will decompensate in a less restrictive setting Request HC Surrog/Guard Advoc?: Yes Nicholas Mujica DO Feb 12, 2017 16:10
[2017-02-12 16:19] VITALS: BP 119/60; PULSE 80; RESP 16; TEMP 98.3; O2SAT 99
[2017-02-12] MEDS: MIRTAZAPINE 15 MG TAB PO SCH (20:23)
[2017-02-12] MEDS: CIPROFLOXACIN 0.3% OPTH OINT 3.5 GM TUBO EACH EYE SCH (23:55)
[2017-02-13] MEDS: CIPROFLOXACIN 0.3% OPTH OINT 3.5 GM TUBO EACH EYE SCH ×3 (05:50→21:52)
[2017-02-13 06:10] VITALS: BP 161/67; PULSE 65; RESP 17; TEMP 97.6; O2SAT 100
[2017-02-13] MEDS: DOCUSATE SODIUM 100 MG CAP PO SCH ×2 (08:14→21:51)
[2017-02-13] MEDS: amLODIPine BESYLATE 5 MG TAB PO SCH (08:14)
[2017-02-13] MEDS: CHOLECALCIFEROL (VIT D3) 1000 UNIT TAB PO SCH (08:14)
[2017-02-13 11:25] VITALS: BP 133/61; PULSE 89
--- NOTE | 2017-02-13 16:42 | HHI.PYPN ---
Subjective Remarks Patient was seen and case discussed with nursing. Patient is alert and oriented 2. Behavior has improved he is no longer exit seeking and having psychomotor retardation. Mental Status Examination Appearance: Disheveled Consciousness: Alert Orientation: Person Motor Activity: Normal gait Speech: Other Language: Adequate Fund of Knowledge: Inadequate Attention and Concentration: Easily Distracted Memory: Impaired Mood: Angry Affect: Anxious Thought Process & Associations: Disorganized Thought Content: Hallucinations, Preoccupations, Delusional Hallucination Type: Auditory (likely responding) Delusion Type: None, Paranoid Suicidal Ideation: No Suicidal Plan: No Suicidal Intention: No Homicidal Ideation: No Homicidal Plan: No Homicidal Intention: No Insight: Poor Judgment: Poor Results Vitals/IOs Vital Signs Date Time Temp Pulse Resp B/P (MAP) Pulse Ox O2 Delivery O2 Flow Rate FiO2 02/13/17 11:25 89 133/61 (85) 02/13/17 06:10 97.6 17 100 02/09/17 19:56 Room Air Intake and Output 02/13/17 02/13/17 02/14/17 08:00 16:00 00:00 Intake Total 0 ml 240 ml Balance 0 ml 240 ml Assessment & Plan Problem List: (1) Dementia in other diseases classified elsewhere with behavioral disturbance ICD Codes: F02.81 - Dementia in other diseases classified elsewhere with behavioral disturbance (2) ALZHEIMER'S DISEASE WITH LATE ONSET ICD Codes: G30.1 - ALZHEIMER'S DISEASE WITH LATE ONSET Assessment & Plan Patient was seen and case discussed with nursing Justification for Cont. Inpt. Patient will decompensate in a less restrictive setting Request HC Surrog/Guard Advoc?: Yes Nicholas Mujica DO Feb 13, 2017 16:41
[2017-02-13 18:05] VITALS: BP 150/65; PULSE 94; RESP 18; TEMP 98.4
[2017-02-13] MEDS: MIRTAZAPINE 15 MG TAB PO SCH (21:52)
[2017-02-14 05:25] VITALS: BP 135/67; PULSE 83; RESP 13; TEMP 97.5; O2SAT 100
[2017-02-14] MEDS: CIPROFLOXACIN 0.3% OPTH OINT 3.5 GM TUBO EACH EYE SCH ×4 (06:00→21:20)
[2017-02-14] MEDS: CHOLECALCIFEROL (VIT D3) 1000 UNIT TAB PO SCH (09:00)
[2017-02-14] MEDS: DOCUSATE SODIUM 100 MG CAP PO SCH ×3 (09:11→21:00)
[2017-02-14] MEDS: amLODIPine BESYLATE 5 MG TAB PO SCH (09:11)
--- NOTE | 2017-02-14 09:41 | HHI.PR ---
Subjective Remarks Follow-up visit dementia, chronic pain, HTN, left eye drainage. Patient seen and examined ambulating in the hallway. Spoke with nurse who does not repot any worsening in left eye drainage. Patient denies any pain or burning. He denies any fevers, chills, headache or constipation. Repots "everything else has been fine". He tells me that he has to leave because his 's boyfriend has taken his car and is driving it around. Objective Vitals Vital Signs Date Time Temp Pulse Resp B/P (MAP) Pulse Ox O2 Delivery O2 Flow Rate FiO2 02/14/17 05:25 97.5 83 13 135/67 (89) 100 02/13/17 18:05 98.4 94 18 150/65 (93) 02/13/17 11:25 89 133/61 (85) I/O 02/13/17 02/13/17 02/13/17 02/14/17 02/14/17 02/14/17 07:00 15:00 23:00 07:00 15:00 23:00 Intake Total 0 ml 240 ml Balance 0 ml 240 ml Intake Oral 0 ml 240 ml # Voids 2 1 Result Diagram: 02/10/17 0850 02/10/17 0850 Objective Remarks GENERAL: This is a well-nourished, well-developed patient, in no apparent distress. SKIN: Warm and dry HEENT: Normocephalic.Nose without bleeding. Airway patent. Left eye with some redness, mucoid drainage along with ointment noted. Left Pupil irregular. NECK: Trachea midline. No JVD. CARDIOVASCULAR: Regular rate and rhythm without murmurs, gallops, or rubs. RESPIRATORY: Clear to auscultation. Breath sounds equal bilaterally. No wheezes , rales, or rhonchi. GASTROINTESTINAL: Abdomen soft, non-tender, nondistended. Bowel Sounds normoactive x4. MUSCULOSKELETAL: Extremities without clubbing, cyanosis, or edema. NEUROLOGICAL: Alert and oriented to self. Moves all extremities. Ambulating without difficulties. Procedures NONE A/P Problem List: (1) HTN (hypertension) ICD Code: I10 - Essential (primary) hypertension (2) Conjunctivitis ICD Code: H10.9 - Unspecified conjunctivitis (3) ALZHEIMER'S DISEASE WITH LATE ONSET ICD Code: G30.1 - ALZHEIMER'S DISEASE WITH LATE ONSET (4) Dementia in other diseases classified elsewhere with behavioral disturbance ICD Code: F02.81 - Dementia in other diseases classified elsewhere with behavioral disturbance Assessment and Plan Patient is a 81-year-old gentleman currently in the psychiatric unit under a Gatica act for threatening to kill his . Dementia with behavioral disturbances - Managed by psychiatry team Left eye injection, conjunctivitis - Cipro ointment 5 days - Eyecare, continue to monitor HTN, chronic - Continue amlodipine 5 mg daily, clonidine 0.1 mg when necessary - Monitor BP trend. Occasional increase in BP possibly secondary to agitation - BP stable this AM DVT prop early ambulation Susan Grigsby Feb 14, 2017 09:41
--- NOTE | 2017-02-14 11:17 | HHI.PYPN ---
Subjective Remarks Patient seen in his room with nurse Killian, chart reviewed, patient compliant medications. He is showing no behavioral problems continues diffusely confused disoriented. Review of Systems Except as stated in HPI: all other systems reviewed are Neg Mental Status Examination Appearance: Disheveled Consciousness: Alert Orientation: Person Motor Activity: Normal gait Speech: Other Language: Adequate Fund of Knowledge: Inadequate Attention and Concentration: Easily Distracted Memory: Impaired Mood: Angry Affect: Anxious Thought Process & Associations: Disorganized Thought Content: Hallucinations, Preoccupations, Delusional Hallucination Type: Auditory (likely responding) Delusion Type: None, Paranoid Suicidal Ideation: No Suicidal Plan: No Suicidal Intention: No Homicidal Ideation: No Homicidal Plan: No Homicidal Intention: No Insight: Poor Judgment: Poor Results Vitals/IOs Vital Signs Date Time Temp Pulse Resp B/P (MAP) Pulse Ox O2 Delivery O2 Flow Rate FiO2 02/14/17 05:25 97.5 83 13 135/67 (89) 100 Intake and Output 02/14/17 02/14/17 02/15/17 08:00 16:00 00:00 Intake Total 360 ml Balance 360 ml Assessment & Plan Problem List: (1) Dementia in other diseases classified elsewhere with behavioral disturbance ICD Codes: F02.81 - Dementia in other diseases classified elsewhere with behavioral disturbance (2) ALZHEIMER'S DISEASE WITH LATE ONSET ICD Codes: G30.1 - ALZHEIMER'S DISEASE WITH LATE ONSET Assessment & Plan Estimated LOS: days patient continues confused and demented, compliant medications, no significant behavioral problems noted Justification for Cont. Inpt. At this time patient will decompensate in place to the lower level of care Discharge Planning This time need further communication with family to consider placement options Request HC Surrog/Guard Advoc?: Yes Beni Moreno MD Feb 14, 2017 11:17
[2017-02-14 17:00] VITALS: BP 132/64; PULSE 90; RESP 16; TEMP 98.2; O2SAT 98
[2017-02-14] MEDS: MIRTAZAPINE 15 MG TAB PO SCH (20:39)
[2017-02-14] MEDS: hydrOXYzine HCL 50 MG TAB PO PRN (20:39)
[2017-02-14] MEDS ORDERED: LORazepam 2 MG/ML VIAL IM ONE (21:45)
[2017-02-14] MEDS ORDERED: diphenhydrAMINE HCL 50 MG/ML VIAL IM ONE (21:45)
[2017-02-14] MEDS ORDERED: HALOPERIDOL LACTATE 5 MG/ML AMP IM ONE (21:45)
[2017-02-15 05:57] VITALS: BP 119/59; PULSE 69; RESP 16; TEMP 97.2; O2SAT 95
[2017-02-15] MEDS: CIPROFLOXACIN 0.3% OPTH OINT 3.5 GM TUBO EACH EYE SCH ×3 (06:28→22:22)
[2017-02-15] MEDS: DOCUSATE SODIUM 100 MG CAP PO SCH ×2 (08:36→20:00)
[2017-02-15] MEDS: amLODIPine BESYLATE 5 MG TAB PO SCH (08:36)
[2017-02-15] MEDS: CHOLECALCIFEROL (VIT D3) 1000 UNIT TAB PO SCH (09:00)
--- NOTE | 2017-02-15 10:00 | HHI.PYPN ---
Subjective Remarks Patient seen in day room with floor staff had nurse Killian, chart review, patient did much misbehaving last night standing on chairs yelling screaming and being aggressive with staff. He did not sleep much of the night necessitating ETO late in the evening. This morning continue somewhat sedated but arousable to diffusely confused. Will add Seroquel 25 mg at noon and 6 PM, and 50 mg Seroquel at 10 PM. Review of Systems Except as stated in HPI: all other systems reviewed are Neg Mental Status Examination Appearance: Disheveled Consciousness: Alert Orientation: Person Motor Activity: Normal gait Speech: Other Language: Adequate Fund of Knowledge: Inadequate Attention and Concentration: Easily Distracted Memory: Impaired Mood: Angry Affect: Anxious Thought Process & Associations: Disorganized Thought Content: Hallucinations, Preoccupations, Delusional Hallucination Type: Auditory (likely responding) Delusion Type: None, Paranoid Suicidal Ideation: No Suicidal Plan: No Suicidal Intention: No Homicidal Ideation: No Homicidal Plan: No Homicidal Intention: No Insight: Poor Judgment: Poor Results Vitals/IOs Vital Signs Date Time Temp Pulse Resp B/P (MAP) Pulse Ox O2 Delivery O2 Flow Rate FiO2 02/15/17 05:57 97.2 69 16 119/59 (79) 95 Intake and Output 02/15/17 02/15/17 02/16/17 08:00 16:00 00:00 Intake Total 0 ml Balance 0 ml Assessment & Plan Problem List: (1) Dementia in other diseases classified elsewhere with behavioral disturbance ICD Codes: F02.81 - Dementia in other diseases classified elsewhere with behavioral disturbance (2) ALZHEIMER'S DISEASE WITH LATE ONSET ICD Codes: G30.1 - ALZHEIMER'S DISEASE WITH LATE ONSET Assessment & Plan Estimated LOS: days patient continues demented confused who with increased behavioral problems noted in the evening very poor sleep see medication addition above Justification for Cont. Inpt. At this time patient decompensate a placed a lower level of care Discharge Planning Need to work the family to discuss placement issues Request HC Surrog/Guard Advoc?: Yes Beni Moreno MD Feb 15, 2017 10:00
[2017-02-15] MEDS: QUEtiapine FUMARATE 25 MG TAB PO SCH ×2 (12:13→18:52)
--- NOTE | 2017-02-15 13:14 | HHI.PR ---
Subjective Remarks in no acute distress. denies pain. d/w the RN and no acute issues over night. Objective Vitals Vital Signs Date Time Temp Pulse Resp B/P (MAP) Pulse Ox O2 Delivery O2 Flow Rate FiO2 02/15/17 05:57 97.2 69 16 119/59 (79) 95 02/14/17 17:00 98.2 90 16 132/64 (86) 98 I/O 02/14/17 02/14/17 02/14/17 02/15/17 02/15/17 02/15/17 07:00 15:00 23:00 07:00 15:00 23:00 Intake Total 1100 ml 360 ml 0 ml 240 ml Balance 1100 ml 360 ml 0 ml 240 ml Intake Oral 1100 ml 360 ml 0 ml 240 ml # Voids 5 2 1 Objective Remarks GENERAL: This is a well-nourished, well-developed patient, in no apparent distress. CARDIOVASCULAR: Regular rate and regular rhythm without murmurs, gallops, or rubs. RESPIRATORY: Clear to auscultation. Breath sounds equal bilaterally. No wheezes , rales, or rhonchi. GASTROINTESTINAL: Abdomen soft, non-tender, nondistended. Normal, active bowel sounds MUSCULOSKELETAL: Extremities without clubbing, cyanosis, or edema. NEURO: Alert & Oriented x4 to person, place, time, situation. Moves all ext x4 Procedures NONE Medications and IVs Inpatient Medications Acetaminophen (Tylenol) 650 mg Q4H PRN PO Pain 1-5 or Temp >101F; Start at 16:15 Acetaminophen/ Hydrocodone Bitart ([place] 5-325 Mg) 1 tab Q6H PRN PO PAIN 6-10 ; Start 02/09/17 at 16:15 Al Hydrox/Mg Hydrox/Simethicone (Mag-Al Plus Susp Liq) 30 ml Q6H PRN PO DYSPEPSIA; Start 02/09/17 at 16:15 Amlodipine Besylate (Norvasc) 5 mg DAILY PO Last administered on 02/15/17at 08:36 ; Start 02/10/17 at 09:00 Cholecalciferol (Vitamin D3) 1,000 units DAILY PO Last administered on at 09:00; Start 02/12/17 at 13:45 Ciprofloxacin (Ciloxan 0.3% Opth Oint) 1 applic Q8HR EACH EYE Last administered on 02/15/17at 06:28; Start 02/12/17 at 22:00; Stop 02/17/17 at 21:59 Clonidine (Catapres) 0.1 mg Q6H PRN PO SBP>160, DBP>90; Start 02/12/17 at 13:45 Diphenhydramine HCl (Benadryl Inj) 25 mg NOW ONCE IM Last administered on at 21:51; Start 02/14/17 at 21:45; Stop 02/14/17 at 21:46; Status DC Diphenhydramine HCl (Benadryl) 50 mg HS PRN PO INSOMNIA; Start 02/10/17 at 15:15 Docusate Sodium (Colace) 100 mg BID PO Last administered on 02/15/17at 08:36; Start 02/09/17 at 21:00 Haloperidol Lactate (Haldol Inj) 5 mg NOW ONCE IM Last administered on at 21:51; Start 02/14/17 at 21:45; Stop 02/14/17 at 21:46; Status DC Hydroxyzine HCl (Atarax) 50 mg Q6H PRN PO ANXIETY Last administered on at 11:00; Start 02/10/17 at 15:15 Lorazepam (Ativan Inj) 1 mg NOW ONCE IM Last administered on 02/14/17at 21:51; Start 02/14/17 at 21:45; Stop 02/14/17 at 21:46; Status DC Lorazepam (Ativan) 1 mg Q6H PRN PO MODERATE TO SEVERE ANXIETY; Start 02/09/17 at 16:15; Stop 02/12/17 at 16:11; Status DC Magnesium Hydroxide (Milk Of Magnesia Liq) 30 ml DAILY PRN PO CONSTIPATION; Start 02/09/17 at 16:15 Mirtazapine (Remeron) 30 mg HS PO Last administered on 02/14/17at 20:39; Start at 21:00 Quetiapine Fumarate (SEROquel) 50 mg DAILY@2200 PO ; Start 02/15/17 at 22:00 A/P Problem List: (1) HTN (hypertension) ICD Code: I10 - Essential (primary) hypertension (2) Conjunctivitis ICD Code: H10.9 - Unspecified conjunctivitis (3) ALZHEIMER'S DISEASE WITH LATE ONSET ICD Code: G30.1 - ALZHEIMER'S DISEASE WITH LATE ONSET (4) Dementia in other diseases classified elsewhere with behavioral disturbance ICD Code: F02.81 - Dementia in other diseases classified elsewhere with behavioral disturbance Assessment and Plan Dementia with behavioral disturbances - Managed by psychiatry team Left eye injection, conjunctivitis - Cipro ointment to finish the course of treatment - [facility]. HTN, chronic - Continue amlodipine 5 mg daily, clonidine 0.1 mg when necessary -BP fairly stable. [facility] will sign off and see him as needed. Nara Cabral MD Feb 15, 2017 13:14
[2017-02-15 17:15] VITALS: BP 117/58; PULSE 79; RESP 16; TEMP 98.1; O2SAT 100
[2017-02-15] MEDS: MIRTAZAPINE 15 MG TAB PO SCH (20:00)
[2017-02-15] MEDS: hydrOXYzine HCL 50 MG TAB PO PRN (20:00)
[2017-02-15] MEDS ORDERED: QUEtiapine FUMARATE 100 MG TAB PO SCH (22:00)
[2017-02-16] MEDS: CIPROFLOXACIN 0.3% OPTH OINT 3.5 GM TUBO EACH EYE SCH ×3 (06:00→22:00)
[2017-02-16 06:02] VITALS: BP 136/66; PULSE 88; RESP 17; TEMP 98.5; O2SAT 100
[2017-02-16] MEDS: CHOLECALCIFEROL (VIT D3) 1000 UNIT TAB PO SCH (09:20)
[2017-02-16] MEDS: amLODIPine BESYLATE 5 MG TAB PO SCH (09:20)
[2017-02-16] MEDS: DOCUSATE SODIUM 100 MG CAP PO SCH ×2 (09:20→21:45)
--- NOTE | 2017-02-16 10:08 | PD.TTN ---
Patient Problems 1. Discharge planning 2. Medication compliance 3. Knowledge deficit 4. Lack of coping skills Progress Toward Goals Provider Present: Dr. Cyndy Moreno Provider Input: Patient continues to have confusion and dementia. Patient is having medication adjustment due to behavioral issues at night. Patient also is having poor sleep. Nurse(s) Input: Patient is confused and is difficutl to redirect. Patient had agitated behavior and needed PRN medication. Patient is hesitant with medications but is somewhat cooperative. Will continue to monitor for behavioral issues Psychiatric Counselors Present: JOVANY Allan Psych Therapist Input: Counselor spoke with in regards to patient's placement. patient has been accepted to [facility] and this counselor recommened to get in touch with facility to work out finacials. PASSR has been sent and will follow up. Group Spec/RT/OT/OCHOA Present: DON Yang Group Spec/RT/OT/OCHOA Input: Patient is selective in groups. Radha AgeeMegan Feb 16, 2017 10:08
--- NOTE | 2017-02-16 11:34 | HHI.PYPN ---
Subjective Remarks Patient seen in his room with nurse Lacy, chart review, patient compliant medications. Patient continues confused though somewhat more irritable today stating that he is "locked up" continues to focus on improving blaming on his for him being in here. Is also some poor sleep, also complains of some vague auditory hallucinations. Will increase at bedtime Seroquel to 75 mg Review of Systems Except as stated in HPI: all other systems reviewed are Neg Mental Status Examination Appearance: Disheveled Consciousness: Alert Orientation: Person Motor Activity: Normal gait Speech: Other Language: Adequate Fund of Knowledge: Inadequate Attention and Concentration: Easily Distracted Memory: Impaired Mood: Angry Affect: Anxious Thought Process & Associations: Disorganized Thought Content: Hallucinations, Preoccupations, Delusional Hallucination Type: Auditory (likely responding) Delusion Type: None, Paranoid Suicidal Ideation: No Suicidal Plan: No Suicidal Intention: No Homicidal Ideation: No Homicidal Plan: No Homicidal Intention: No Insight: Poor Judgment: Poor Results Vitals/IOs Vital Signs Date Time Temp Pulse Resp B/P (MAP) Pulse Ox O2 Delivery O2 Flow Rate FiO2 02/16/17 06:02 98.5 88 17 136/66 (89) 100 Assessment & Plan Problem List: (1) Dementia in other diseases classified elsewhere with behavioral disturbance ICD Codes: F02.81 - Dementia in other diseases classified elsewhere with behavioral disturbance (2) ALZHEIMER'S DISEASE WITH LATE ONSET ICD Codes: G30.1 - ALZHEIMER'S DISEASE WITH LATE ONSET Assessment & Plan Estimated LOS: days patient continues confused demented though the psychotic flavor, also continues quite irritable with mild paranoia. Will increase at bedtime Seroquel to 75 mg Justification for Cont. Inpt. If this time patient will decompensate placed a lower level of care Discharge Planning Need to work with family probable placement. There appears to be a bed available at [facility] and rehabilitation when patient has further stabilized Request HC Surrog/Guard Advoc?: Yes Beni Moreno MD Feb 16, 2017 11:34
[2017-02-16] MEDS: QUEtiapine FUMARATE 25 MG TAB PO SCH ×3 (14:03→22:00)
[2017-02-16 18:00] VITALS: BP 130/59; PULSE 74; RESP 16; TEMP 98.1; O2SAT 99
[2017-02-16] MEDS: MIRTAZAPINE 15 MG TAB PO SCH (21:46)
[2017-02-17 05:46] VITALS: BP 160/72; PULSE 72; RESP 18; TEMP 98.2; O2SAT 95
[2017-02-17] MEDS: CIPROFLOXACIN 0.3% OPTH OINT 3.5 GM TUBO EACH EYE SCH ×2 (06:00→13:15)
[2017-02-17] MEDS: amLODIPine BESYLATE 5 MG TAB PO SCH (08:56)
[2017-02-17] MEDS: DOCUSATE SODIUM 100 MG CAP PO SCH ×2 (08:56→20:50)
[2017-02-17] MEDS: CHOLECALCIFEROL (VIT D3) 1000 UNIT TAB PO SCH (08:56)
[2017-02-17 10:43] VITALS: BP 130/60; PULSE 107
--- NOTE | 2017-02-17 11:34 | HHI.PYPN ---
Subjective Remarks Patient seen in [place] retained by Site Identification Specialist Srinivasan, patient calm pleasant in [place] was confusion was evident in his responses. Patient compliant medications. Ms. no behavior problems noted recently. Review of Systems Except as stated in HPI: all other systems reviewed are Neg Mental Status Examination Appearance: Disheveled Consciousness: Alert Orientation: Person Motor Activity: Normal gait Speech: Other Language: Adequate Fund of Knowledge: Inadequate Attention and Concentration: Easily Distracted Memory: Impaired Mood: Angry Affect: Anxious Thought Process & Associations: Disorganized Thought Content: Hallucinations, Preoccupations, Delusional Hallucination Type: Auditory (likely responding) Delusion Type: None, Paranoid Suicidal Ideation: No Suicidal Plan: No Suicidal Intention: No Homicidal Ideation: No Homicidal Plan: No Homicidal Intention: No Insight: Poor Judgment: Poor Results Vitals/IOs Vital Signs Date Time Temp Pulse Resp B/P (MAP) Pulse Ox O2 Delivery O2 Flow Rate FiO2 02/17/17 10:43 107 130/60 (83) 02/17/17 05:46 98.2 18 95 Intake and Output 02/17/17 02/17/17 02/18/17 08:00 16:00 00:00 Intake Total 600 ml Balance 600 ml Assessment & Plan Problem List: (1) Dementia in other diseases classified elsewhere with behavioral disturbance ICD Codes: F02.81 - Dementia in other diseases classified elsewhere with behavioral disturbance (2) ALZHEIMER'S DISEASE WITH LATE ONSET ICD Codes: G30.1 - ALZHEIMER'S DISEASE WITH LATE ONSET Assessment & Plan Estimated LOS: days patient continues to mental confused. Retained in [place], no behavior problems noted recently, compliant medications Justification for Cont. Inpt. At this time patient will decompensate a placed in a lower level of care Discharge Planning Placement needs to be determined Request HC Surrog/Guard Advoc?: Yes Beni Moreno MD Feb 17, 2017 11:34
[2017-02-17] MEDS: QUEtiapine FUMARATE 25 MG TAB PO SCH ×3 (11:46→20:53)
[2017-02-17 16:47] VITALS: BP 149/60; RESP 18; TEMP 97.3
[2017-02-17] MEDS: MIRTAZAPINE 15 MG TAB PO SCH (20:50)
[2017-02-18 06:20] VITALS: BP 124/59; PULSE 81; RESP 16; TEMP 97.8; O2SAT 96
[2017-02-18] MEDS: CHOLECALCIFEROL (VIT D3) 1000 UNIT TAB PO SCH (08:22)
[2017-02-18] MEDS: DOCUSATE SODIUM 100 MG CAP PO SCH ×2 (08:23→20:44)
[2017-02-18] MEDS: amLODIPine BESYLATE 5 MG TAB PO SCH (08:23)
[2017-02-18] MEDS: QUEtiapine FUMARATE 25 MG TAB PO SCH ×3 (11:25→20:57)
--- NOTE | 2017-02-18 11:57 | HHI.PYPN ---
Subjective Remarks Patient seen in his room with nurse Ferreira, chart review, patient compliant medication. Patient resting, but arousable to alert diffusely confused disoriented with some focusing on discharge. It appears patient may have a placement available once is further stabilized Review of Systems Except as stated in HPI: all other systems reviewed are Neg Mental Status Examination Appearance: Disheveled Consciousness: Alert Orientation: Person Motor Activity: Normal gait Speech: Other Language: Adequate Fund of Knowledge: Inadequate Attention and Concentration: Easily Distracted Memory: Impaired Mood: Angry Affect: Anxious Thought Process & Associations: Disorganized Thought Content: Hallucinations, Preoccupations, Delusional Hallucination Type: Auditory (likely responding) Delusion Type: None, Paranoid Suicidal Ideation: No Suicidal Plan: No Suicidal Intention: No Homicidal Ideation: No Homicidal Plan: No Homicidal Intention: No Insight: Poor Judgment: Poor Results Vitals/IOs Vital Signs Date Time Temp Pulse Resp B/P (MAP) Pulse Ox O2 Delivery O2 Flow Rate FiO2 02/18/17 06:20 97.8 81 16 124/59 (80) 96 Intake and Output 02/18/17 02/18/17 02/19/17 08:00 16:00 00:00 Intake Total 120 ml 240 ml Balance 120 ml 240 ml Assessment & Plan Problem List: (1) Dementia in other diseases classified elsewhere with behavioral disturbance ICD Codes: F02.81 - Dementia in other diseases classified elsewhere with behavioral disturbance (2) ALZHEIMER'S DISEASE WITH LATE ONSET ICD Codes: G30.1 - ALZHEIMER'S DISEASE WITH LATE ONSET Assessment & Plan Estimated LOS: days patient continues diffusely confused disoriented though his sundowning behaviors have diminished, continue somewhat more cooperative. For now continue treatment Justification for Cont. Inpt. At this time patient would decompensate if not placed in an appropriate level of care Discharge Planning Possible placement and a usp type setting where a family member works Request HC Surrog/Guard Advoc?: Yes Beni Moreno MD Feb 18, 2017 11:57
[2017-02-18] MEDS: MIRTAZAPINE 15 MG TAB PO SCH (20:44)
[2017-02-18] MEDS: ACETAMINOPHEN/HYDROcodone 325 MG/5 MG TAB PO PRN (20:57)
[2017-02-18] MEDS: hydrOXYzine HCL 50 MG TAB PO PRN (22:59)
[2017-02-18] MEDS: diphenhydrAMINE HCL 50 MG CAP PO PRN (22:59)
[2017-02-19 06:46] VITALS: BP 122/58; PULSE 77; RESP 14; TEMP 97.9; O2SAT 93
[2017-02-19] MEDS: CHOLECALCIFEROL (VIT D3) 1000 UNIT TAB PO SCH (09:00)
[2017-02-19] MEDS: amLODIPine BESYLATE 5 MG TAB PO SCH (09:00)
[2017-02-19] MEDS: DOCUSATE SODIUM 100 MG CAP PO SCH ×2 (09:01→20:37)
--- NOTE | 2017-02-19 11:13 | HHI.PYPN ---
Subjective Remarks Pt seen and discussed with staff. Pt continues to express delusional and paranoid ideations that his and family are conspiring against him and stealing his money. He has been cooperative and care. No aggression or agitation. No SI/HI Mental Status Examination Appearance: Appropriate Consciousness: Alert Orientation: Person Motor Activity: Normal gait Speech: Other Language: Adequate Fund of Knowledge: Inadequate Attention and Concentration: Easily Distracted Memory: Impaired Mood: Appropriate Affect: Appropriate Thought Process & Associations: Disorganized Thought Content: Hallucinations, Delusional Hallucination Type: None Delusion Type: Paranoid Suicidal Ideation: No Suicidal Plan: No Suicidal Intention: No Homicidal Ideation: No Homicidal Plan: No Homicidal Intention: No Insight: Poor Judgment: Poor Results Vitals/IOs Vital Signs Date Time Temp Pulse Resp B/P (MAP) Pulse Ox O2 Delivery O2 Flow Rate FiO2 02/19/17 06:46 97.9 77 14 122/58 (79) 93 Intake and Output 02/19/17 02/19/17 02/20/17 08:00 16:00 00:00 Intake Total 240 ml Balance 240 ml Assessment & Plan Problem List: (1) Dementia in other diseases classified elsewhere with behavioral disturbance ICD Codes: F02.81 - Dementia in other diseases classified elsewhere with behavioral disturbance (2) ALZHEIMER'S DISEASE WITH LATE ONSET ICD Codes: G30.1 - ALZHEIMER'S DISEASE WITH LATE ONSET Assessment & Plan continue current tx plan Estimated LOS: days Justification for Cont. Inpt. risk of decompensation Request HC Surrog/Guard Advoc?: Yes La Rasmussen MD Feb 19, 2017 11:13
[2017-02-19] MEDS: QUEtiapine FUMARATE 25 MG TAB PO SCH ×3 (12:36→20:37)
[2017-02-19 18:00] VITALS: BP 112/67; PULSE 101; RESP 20; TEMP 98.5; O2SAT 92
[2017-02-19] MEDS: ACETAMINOPHEN/HYDROcodone 325 MG/5 MG TAB PO PRN (20:37)
[2017-02-19] MEDS: MIRTAZAPINE 15 MG TAB PO SCH (20:37)
[2017-02-19] MEDS: hydrOXYzine HCL 50 MG TAB PO PRN (23:13)
[2017-02-19] MEDS: diphenhydrAMINE HCL 50 MG CAP PO PRN (23:13)
[2017-02-20 05:00] VITALS: BP 180/84; PULSE 113; RESP 18; TEMP 97.8; O2SAT 98
[2017-02-20 09:05] VITALS: BP 154/74
[2017-02-20] MEDS: DOCUSATE SODIUM 100 MG CAP PO SCH ×2 (09:07→21:03)
[2017-02-20] MEDS: CHOLECALCIFEROL (VIT D3) 1000 UNIT TAB PO SCH (09:07)
[2017-02-20] MEDS: amLODIPine BESYLATE 5 MG TAB PO SCH (09:07)
[2017-02-20] MEDS: QUEtiapine FUMARATE 25 MG TAB PO SCH ×3 (12:15→23:38)
[2017-02-20] MEDS: hydrOXYzine HCL 50 MG TAB PO PRN (15:16)
--- NOTE | 2017-02-20 16:38 | HHI.PYPN ---
Subjective Remarks Pt seen and discussed with staff. He visited with son and DIL today and afterwards became more paranoid and suspicious accusing staff of being up to something. He rants at doctor about his work schedule and states that "Black Women are the worst!" He later calms and goes to dayroom without incident. No SI/HI Mental Status Examination Appearance: Appropriate Consciousness: Alert Orientation: Person Motor Activity: Normal gait Speech: Other Language: Adequate Fund of Knowledge: Inadequate Attention and Concentration: Easily Distracted Memory: Impaired Mood: Angry Affect: Irritable Thought Process & Associations: Disorganized Thought Content: Delusional Hallucination Type: None Delusion Type: Paranoid Suicidal Ideation: No Suicidal Plan: No Suicidal Intention: No Homicidal Ideation: No Homicidal Plan: No Homicidal Intention: No Insight: Poor Judgment: Poor Results Vitals/IOs Vital Signs Date Time Temp Pulse Resp B/P (MAP) Pulse Ox O2 Delivery O2 Flow Rate FiO2 02/20/17 09:05 154/74 (100) 02/20/17 05:00 97.8 113 18 98 Intake and Output 02/20/17 02/20/17 02/21/17 08:00 16:00 00:00 Intake Total 480 ml 240 ml Balance 480 ml 240 ml Assessment & Plan Problem List: (1) Dementia in other diseases classified elsewhere with behavioral disturbance ICD Codes: F02.81 - Dementia in other diseases classified elsewhere with behavioral disturbance (2) ALZHEIMER'S DISEASE WITH LATE ONSET ICD Codes: G30.1 - ALZHEIMER'S DISEASE WITH LATE ONSET Assessment & Plan Continue current tx plan. Estimated LOS: days Justification for Cont. Inpt. agitation Request HC Surrog/Guard Advoc?: Yes La Rasmussen MD Feb 20, 2017 16:38
[2017-02-20 20:00] VITALS: BP 113/58; PULSE 113; RESP 18; TEMP 97.7; O2SAT 98
--- NOTE | 2017-02-20 20:59 | RADRPT ---
EXAM DATE/TIME: 02/20/2017 20:29 [place] COMPARISON: No previous studies available for comparison. INDICATIONS : Fell hitting back of head. RADIATION DOSE: 56.36 CTDIvol (mGy) MEDICAL HISTORY : Dementia. Alzheimer's. Cardiovascular diseaseHTN Diabetes SURGICAL HISTORY : None. ENCOUNTER: Initial ACUITY: 1 day PAIN SCALE: 0/10 LOCATION: cranial TECHNIQUE: Multiple contiguous axial images were obtained of the head. Using automated exposure control and adj ustment of the mA and/or kV according to patient size, radiation dose was kept as low as reasonably a chievable to obtain optimal diagnostic quality images. DICOM format image data is available electro nically for review and comparison. FINDINGS: CEREBRUM: The ventricles are normal for age. No evidence of midline shift, mass lesion, hemorrhage or acute in farction. No extra-axial fluid collections are seen. There is chronic-appearing low attenuation in t he periventricular white matter and mild atrophy. POSTERIOR FOSSA: The cerebellum and brainstem are intact. The 4th ventricle is midline. The cerebellopontine angle i s unremarkable. EXTRACRANIAL: There is asymmetry of the orbits/globes with the left globe appearing sunken relative to the right. T his is presumably nonacute. Globes are grossly intact. SKULL: The calvaria is intact. No evidence of skull fracture. CONCLUSION: No bleed or other acute intracranial abnormality. Atrophy, chronic white matter changes and orbital a symmetry as above. Beni Hoffman MD on February 20, 2017 at 20:55 Board Certified Radiologist. This report was verified electronically.
[2017-02-20] MEDS: MIRTAZAPINE 15 MG TAB PO SCH (21:03)
[2017-02-20 22:00] VITALS: BP 120/56; PULSE 96; RESP 16; O2SAT 96
[2017-02-21 04:25] VITALS: BP 123/79; PULSE 86; RESP 18; TEMP 97.4; O2SAT 97
[2017-02-21 05:45] VITALS: BP 123/79; PULSE 86; RESP 18; TEMP 97.9; O2SAT 97
[2017-02-21 06:39] VITALS: BP 126/57; PULSE 83; O2SAT 97
[2017-02-21] MEDS: CHOLECALCIFEROL (VIT D3) 1000 UNIT TAB PO SCH (08:40)
[2017-02-21] MEDS: DOCUSATE SODIUM 100 MG CAP PO SCH ×2 (08:40→21:02)
[2017-02-21] MEDS: amLODIPine BESYLATE 5 MG TAB PO SCH (08:40)
[2017-02-21] MEDS: QUEtiapine FUMARATE 25 MG TAB PO SCH ×3 (12:00→21:02)
[2017-02-21] MEDS ORDERED: HALOPERIDOL LACTATE 5 MG/ML AMP IM STA (14:03)
[2017-02-21] MEDS ORDERED: diphenhydrAMINE HCL 50 MG/ML VIAL IM STA (14:03)
[2017-02-21] MEDS ORDERED: diphenhydrAMINE HCL 50 MG/ML VIAL ONE (14:04)
[2017-02-21] MEDS ORDERED: HALOPERIDOL LACTATE 5 MG/ML AMP ONE (14:04)
--- NOTE | 2017-02-21 14:08 | HHI.PYPN ---
Subjective Remarks Patient seen in day room with nurse Hanna. Patient aroused irritable yelling appears to be responding to internal stimuli looking out the window with exit seeking behaviors. Patient to be given Haldol 5 mg IM and Benadryl 25 mg IM. Otherwise patient is compliant with medications Review of Systems Except as stated in HPI: all other systems reviewed are Neg Mental Status Examination Appearance: Appropriate Consciousness: Alert Orientation: Person Motor Activity: Normal gait Speech: Other Language: Adequate Fund of Knowledge: Inadequate Attention and Concentration: Easily Distracted Memory: Impaired Mood: Angry Affect: Irritable Thought Process & Associations: Disorganized Thought Content: Delusional Hallucination Type: None Delusion Type: Paranoid Suicidal Ideation: No Suicidal Plan: No Suicidal Intention: No Homicidal Ideation: No Homicidal Plan: No Homicidal Intention: No Insight: Poor Judgment: Poor Results Vitals/IOs Vital Signs Date Time Temp Pulse Resp B/P (MAP) Pulse Ox O2 Delivery O2 Flow Rate FiO2 02/21/17 06:39 83 126/57 (80) 97 02/21/17 05:45 97.9 18 Intake and Output 02/21/17 02/21/17 02/22/17 08:00 16:00 00:00 Intake Total 240 ml 120 ml Balance 240 ml 120 ml Assessment & Plan Problem List: (1) Dementia in other diseases classified elsewhere with behavioral disturbance ICD Codes: F02.81 - Dementia in other diseases classified elsewhere with behavioral disturbance (2) ALZHEIMER'S DISEASE WITH LATE ONSET ICD Codes: G30.1 - ALZHEIMER'S DISEASE WITH LATE ONSET Assessment & Plan Estimated LOS: days patient remains quite confused disoriented but now more aroused with psychotic features. See medication adjustment above Justification for Cont. Inpt. At this time patient will decompensate a place to the lower level of care Discharge Planning Placement may become problematic Request HC Surrog/Guard Advoc?: Yes Beni Moreno MD Feb 21, 2017 14:08
[2017-02-21 15:37] VITALS: BP 155/63; PULSE 94; RESP 16; TEMP 97.2; O2SAT 100
[2017-02-21 17:46] VITALS: BP 133/58; PULSE 96; RESP 16; TEMP 98.1; O2SAT 95
[2017-02-21] MEDS: MIRTAZAPINE 15 MG TAB PO SCH (21:02)
[2017-02-22 06:00] VITALS: BP 148/67; PULSE 101; RESP 18; TEMP 97.6; O2SAT 98
[2017-02-22] MEDS: DOCUSATE SODIUM 100 MG CAP PO SCH ×2 (08:29→20:54)
[2017-02-22] MEDS: CHOLECALCIFEROL (VIT D3) 1000 UNIT TAB PO SCH (08:29)
[2017-02-22] MEDS: amLODIPine BESYLATE 5 MG TAB PO SCH (08:29)
--- NOTE | 2017-02-22 10:11 | PD.TTN ---
Patient Problems 1. Discharge planning 2. Medication compliance 3. Knowledge deficit 4. Lack of coping skills Progress Toward Goals Provider Present: Dr. Cyndy Moreno Provider Input: 02/22 Patient continues to have behavioral issues, needing an ETO due to aggressive behavior. Patient is irritable and yelling and noted to be internally stimulated. Patient continues to have confusion and dementia. Patient is having medication adjustment due to behavioral issues at night. Patient also is having poor sleep. Nurse(s) Input: 02/22 Patient is difficult to redirect and is observed to be irritable at times. Patient continues to be paranoid and sits down on floor. There are no injuries to be noted. Patient is confused and is difficutl to redirect. Patient had agitated behavior and needed PRN medication. Patient is hesitant with medications but is somewhat cooperative. Will continue to monitor for behavioral issues Psychiatric Counselors Present: JOVANY Allan Psych Therapist Input: 02/22 Counselor has been in touch with daughter and it is noted that patient is being assessed by [facility]. Counselor spoke with in regards to patient's placement. patient has been accepted to [facility] and this counselor recommened to get in touch with facility to work out finacials. PASSR has been sent and will follow up. Group Spec/RT/OT/OCHOA Present: DON Yang Group Spec/RT/OT/OCHOA Input: Patient is selective in groups. Radha Agee Feb 22, 2017 10:11
[2017-02-22] MEDS: QUEtiapine FUMARATE 25 MG TAB PO SCH ×3 (11:46→20:55)
--- NOTE | 2017-02-22 12:09 | HHI.PYPN ---
Subjective Remarks Patient seen today in day room with nurse Hanna, patient calm cooperative eating lunch without difficulty. He continues markedly confused and disorganized. However no behavior problems at this time Review of Systems Except as stated in HPI: all other systems reviewed are Neg Mental Status Examination Appearance: Appropriate Consciousness: Alert Orientation: Person Motor Activity: Normal gait Speech: Other Language: Adequate Fund of Knowledge: Inadequate Attention and Concentration: Easily Distracted Memory: Impaired Mood: Angry Affect: Irritable Thought Process & Associations: Disorganized Thought Content: Delusional Hallucination Type: None Delusion Type: Paranoid Suicidal Ideation: No Suicidal Plan: No Suicidal Intention: No Homicidal Ideation: No Homicidal Plan: No Homicidal Intention: No Insight: Poor Judgment: Poor Results Vitals/IOs Vital Signs Date Time Temp Pulse Resp B/P (MAP) Pulse Ox O2 Delivery O2 Flow Rate FiO2 02/22/17 06:00 97.6 101 18 148/67 (94) 98 Assessment & Plan Problem List: (1) Dementia in other diseases classified elsewhere with behavioral disturbance ICD Codes: F02.81 - Dementia in other diseases classified elsewhere with behavioral disturbance (2) ALZHEIMER'S DISEASE WITH LATE ONSET ICD Codes: G30.1 - ALZHEIMER'S DISEASE WITH LATE ONSET Assessment & Plan Estimated LOS: days patient continues disorganized and confused but no behavior problems at this time it appears had a fairly good night last night also. For now continue treatment Justification for Cont. Inpt. At this time patient will decompensate placed in a lower level of care Discharge Planning Placement may be somewhat problematic Request HC Surrog/Guard Advoc?: Yes Beni Moreno MD Feb 22, 2017 12:09
[2017-02-22 17:57] VITALS: BP 138/60; PULSE 100; RESP 18; TEMP 97.4; O2SAT 99
[2017-02-22] MEDS: MIRTAZAPINE 15 MG TAB PO SCH (20:55)
[2017-02-23 06:21] VITALS: BP 154/66; PULSE 85; RESP 16; TEMP 98; O2SAT 96
[2017-02-23 08:30] VITALS: BP 161/70
[2017-02-23] MEDS: DOCUSATE SODIUM 100 MG CAP PO SCH ×2 (08:34→21:26)
[2017-02-23] MEDS: CHOLECALCIFEROL (VIT D3) 1000 UNIT TAB PO SCH (08:34)
[2017-02-23] MEDS: amLODIPine BESYLATE 5 MG TAB PO SCH (08:35)
--- NOTE | 2017-02-23 11:20 | HHI.PYPN ---
Subjective Remarks Patient seen in day room with nurse Veronica, chart reviewed, patient compliant medications. Patient alert diffusely confused though somewhat more feisty at this time demanding when discussing possible placement he says he goes 5 or 6 people he can live with. For this appears to be a fabrication. We continue to work with placement issues with this gentleman. For now will increase scheduled date time Seroquel to 50 mg twice a day Review of Systems Except as stated in HPI: all other systems reviewed are Neg Mental Status Examination Appearance: Appropriate Consciousness: Alert Orientation: Person Motor Activity: Normal gait Speech: Other Language: Adequate Fund of Knowledge: Inadequate Attention and Concentration: Easily Distracted Memory: Impaired Mood: Angry Affect: Irritable Thought Process & Associations: Disorganized Thought Content: Delusional Hallucination Type: None Delusion Type: Paranoid Suicidal Ideation: No Suicidal Plan: No Suicidal Intention: No Homicidal Ideation: No Homicidal Plan: No Homicidal Intention: No Insight: Poor Judgment: Poor Results Vitals/IOs Vital Signs Date Time Temp Pulse Resp B/P (MAP) Pulse Ox O2 Delivery O2 Flow Rate FiO2 02/23/17 08:30 161/70 (100) 02/23/17 06:21 98.0 85 16 96 Intake and Output 02/23/17 02/23/17 02/24/17 08:00 16:00 00:00 Intake Total 240 ml Balance 240 ml Assessment & Plan Problem List: (1) Dementia in other diseases classified elsewhere with behavioral disturbance ICD Codes: F02.81 - Dementia in other diseases classified elsewhere with behavioral disturbance (2) ALZHEIMER'S DISEASE WITH LATE ONSET ICD Codes: G30.1 - ALZHEIMER'S DISEASE WITH LATE ONSET Assessment & Plan Estimated LOS: days patient continues diffusely confused demented, little more irritable today. She medication adjustment above. Placement remain somewhat problematic Justification for Cont. Inpt. At this time patient will decompensate placed on the lower level of care Discharge Planning Continue to work with placement issues, continue to work with family Request HC Surrog/Guard Advoc?: Yes Beni Moreno MD Feb 23, 2017 11:20
[2017-02-23] MEDS: QUEtiapine FUMARATE 25 MG TAB PO SCH ×3 (11:43→21:27)
[2017-02-23 18:00] VITALS: BP 135/60; PULSE 107; RESP 16; TEMP 98.4; O2SAT 100
[2017-02-23] MEDS: hydrOXYzine HCL 50 MG TAB PO PRN (21:26)
[2017-02-23] MEDS: MIRTAZAPINE 15 MG TAB PO SCH (21:27)
[2017-02-24 05:46] VITALS: BP 146/69; PULSE 77; RESP 17; TEMP 98.5; O2SAT 97
[2017-02-24] MEDS: amLODIPine BESYLATE 5 MG TAB PO SCH (08:10)
[2017-02-24] MEDS: CHOLECALCIFEROL (VIT D3) 1000 UNIT TAB PO SCH (08:10)
[2017-02-24] MEDS: DOCUSATE SODIUM 100 MG CAP PO SCH ×2 (08:10→21:40)
[2017-02-24] MEDS: QUEtiapine FUMARATE 25 MG TAB PO SCH ×3 (11:35→21:41)
--- NOTE | 2017-02-24 12:45 | HHI.PYPN ---
Subjective Remarks Patient seen in day room with floor staff, also met with patient's daughter and were visiting with him for lunch. Chart reviewed. Patient compliant medication. Patient continues diffusely confused disoriented though is pleasant and seemed happy to see his family. Discussed with daughter the need for appropriate placement of the community that needs to be done in a timely manner Review of Systems Except as stated in HPI: all other systems reviewed are Neg Mental Status Examination Appearance: Appropriate Consciousness: Alert Orientation: Person Motor Activity: Normal gait Speech: Other Language: Adequate Fund of Knowledge: Inadequate Attention and Concentration: Easily Distracted Memory: Impaired Mood: Angry Affect: Irritable Thought Process & Associations: Disorganized Thought Content: Delusional Hallucination Type: None Delusion Type: Paranoid Suicidal Ideation: No Suicidal Plan: No Suicidal Intention: No Homicidal Ideation: No Homicidal Plan: No Homicidal Intention: No Insight: Poor Judgment: Poor Results Vitals/IOs Vital Signs Date Time Temp Pulse Resp B/P (MAP) Pulse Ox O2 Delivery O2 Flow Rate FiO2 02/24/17 05:46 98.5 77 17 146/69 (94) 97 Assessment & Plan Problem List: (1) Dementia in other diseases classified elsewhere with behavioral disturbance ICD Codes: F02.81 - Dementia in other diseases classified elsewhere with behavioral disturbance (2) ALZHEIMER'S DISEASE WITH LATE ONSET ICD Codes: G30.1 - ALZHEIMER'S DISEASE WITH LATE ONSET Assessment & Plan Estimated LOS: days patient remains confused disoriented, though no behavior problems at this time. Did discuss no ecchymosis medications and placement issues with family Justification for Cont. Inpt. At this time patient decompensate if not placed at an appropriate level of care Discharge Planning Continue to work with family related to placement Request HC Surrog/Guard Advoc?: Yes Beni Moreno MD Feb 24, 2017 12:45
[2017-02-24 17:47] VITALS: BP 138/56; PULSE 81; RESP 18; TEMP 97.6; O2SAT 96
[2017-02-24] MEDS: MIRTAZAPINE 15 MG TAB PO SCH (21:40)
[2017-02-24] MEDS: hydrOXYzine HCL 50 MG TAB PO PRN (22:26)
[2017-02-24] MEDS: diphenhydrAMINE HCL 50 MG CAP PO PRN (22:26)
[2017-02-25 05:41] VITALS: BP 128/56; PULSE 85; RESP 18; TEMP 98.1; O2SAT 96
[2017-02-25] MEDS ORDERED: SERO50TA PO (08:48)
[2017-02-25] MEDS ORDERED: AMLO5TAB2 PO (08:48)
[2017-02-25] MEDS ORDERED: CHOL1000 PO (08:48)
[2017-02-25] MEDS ORDERED: HYDR-3516 PO (08:48)
[2017-02-25] MEDS ORDERED: DOCU100C15 PO (08:48)
[2017-02-25] MEDS ORDERED: MIRT30TA PO (08:48)
[2017-02-25] MEDS ORDERED: SERO100T PO (08:48)
[2017-02-25] MEDS: DOCUSATE SODIUM 100 MG CAP PO SCH ×2 (09:00→22:25)
[2017-02-25] MEDS: CHOLECALCIFEROL (VIT D3) 1000 UNIT TAB PO SCH (09:00)
--- NOTE | 2017-02-25 09:05 | HHI.DS ---
Psychiatry Discharge Summary Inpatient Psychiatric care?: Yes Advance Directive: No Reason Not Provided: DOES NOT WANT Mental Health AdvanceDirective: No Health Care Proxy: No Admission Admission Date Feb 09, 2017 at 16:10 Admission Diagnosis: (1) ALZHEIMER'S DISEASE WITH LATE ONSET ICD Code: G30.1 - ALZHEIMER'S DISEASE WITH LATE ONSET (2) Dementia in other diseases classified elsewhere with behavioral disturbance ICD Code: F02.81 - Dementia in other diseases classified elsewhere with behavioral disturbance Brief History 81-year-old male, well known to the staff here at [facility], being admitted under a [place] act after threatening to kill his . Patient reported a voice told him not to kill her. However, he is stating to the emergency room physician and this physician that his of 45 years has been stealing his money. He also makes nonsensical statements such as paying for his daughter's Camaro, even though he is not allowed to drive, just because he feels like it. (His daughter states this is not true.) He has been noncompliant with his prescribed medications. He leaves his home without communicating with family members and apparently gets lost for significant periods of time. The patient is a poor historian and does not know where he is or his situation. He is disoriented to time, date, day as well. He is only oriented to person. He does state that his is stealing his money although there is no evidence to support this. He also reports he's been multiple times, although there is no evidence to support this either. He does not abuse alcohol or drugs. When contacted, his family feels they can no longer care for him at home. Apparently, in addition to not taking his medicines, he does not adequately eat or drink or sleep. He does appear under nourished. Tobacco Use In Past 30 Days: No Tobacco Past 30 Days Alcohol Use: Never Hospital Course Patient's hospital course was uneventful, he did have some episodes of sundowning with irritability towards late afternoon and into the evening. With adjustments of medication. Behaviors have subsided. Remains confused and demented but redirectable. He is compliant with his medications. He does denies suicidality and voices or visions. He has had good visits with family. There is a bed available today at [facility] for this gentleman. Thus patient will be discharged today to that facility Rx 1 month the follow-up mental health services through that facility Results Blood Pressure 128 / 56 Vital Signs Date Time Temp Pulse Resp B/P (MAP) Pulse Ox O2 Delivery O2 Flow Rate FiO2 02/25/17 05:41 98.1 85 18 128/56 (80) 96 Laboratory Results Test 02/10/17 08:50 Cholesterol Level 184 MG/DL (120-200) HDL Cholesterol 78.5 MG/DL (40.0-60.0) Hemoglobin A1c 4.7 % (4.3-6.0) LDL Cholesterol 93 MG/DL (0-99) Triglycerides Level 61 MG/DL (42-150) Summary of Procedures None done Imaging Last Impressions Head CT 02/20/17 0000 Signed Impressions: Service Date/Time: Monday, February 20, 2017 20:29 - CONCLUSION: No bleed or other acute intracranial abnormality. Atrophy, chronic white matter changes and orbital asymmetry as above. Beni Hoffman MD Pending results at discharge: No Medications # of Antipsychotic meds at D/C: 1 Approp Antipsych med options 1 - Minimum of three failed multiple trials of monotherapy. 2 - Documented plan to taper to monotherapy due to previous use of multiple meds OR cross-taper in progress at D/C. 3 - Documentation of augmentation of Clozapine. 4 - Justification other than those listed in allowable values 1-3, document here : Discharge Discharge Date: Feb 25, 2017 Discharge Diagnosis: (1) ALZHEIMER'S DISEASE WITH LATE ONSET Diagnosis: Principal ICD Code: G30.1 - ALZHEIMER'S DISEASE WITH LATE ONSET (2) Dementia in other diseases classified elsewhere with behavioral disturbance Diagnosis: Principal ICD Code: F02.81 - Dementia in other diseases classified elsewhere with behavioral disturbance Pt Condition on Discharge: Stable Discharge Disposition: Discharge to SNF Discharge Instructions Diet Instructions: As Tolerated, No Restrictions Activities you can perform: Regular-No Restrictions Scheduled Appointment: follow-up services through [facility] Discharge Time > 30 minutes Mental Status Examination Appearance: Appropriate Consciousness: Alert Orientation: Person Motor Activity: Normal gait Speech: Other Language: Adequate Fund of Knowledge: Inadequate Attention and Concentration: Easily Distracted Memory: Impaired Mood: Angry Affect: Irritable Thought Process & Associations: Disorganized Thought Content: Delusional Hallucination Type: None Delusion Type: Paranoid Suicidal Ideation: No Suicidal Plan: No Suicidal Intention: No Homicidal Ideation: No Homicidal Plan: No Homicidal Intention: No Insight: Poor Judgment: Poor Discharge/Advance Care Plan Health Problems: (1) Dementia in other diseases classified elsewhere with behavioral disturbance (2) ALZHEIMER'S DISEASE WITH LATE ONSET Goals to promote your health * To prevent worsening of your condition and complications * To maintain your health at the optimal level Directions to meet your goals Take your medications as prescribed Follow your dietary instruction Follow activity as directed Keep your appointments as scheduled Take your immunizations and boosters as scheduled If your symptoms worsen call your PCP, if no PCP go to Urgent Care Center or Emergency Room For 30/08 questions related to your inpatient stay or results of tests pending at discharge, please contact Dr. Beni Moreno at Smoking is Dangerous to Your Health. Avoid second hand smoking Beni Moreno MD Feb 25, 2017 09:05
[2017-02-25] MEDS: amLODIPine BESYLATE 5 MG TAB PO SCH (10:37)
--- NOTE | 2017-02-25 11:50 | HHI.PYPN ---
Subjective Remarks Patient seen in dayroom with floor staff, patient continues somewhat intrusive though into passive worry some [place]. Continues focused on discharge placement. I reassured him that we would make appropriate arrangements. He otherwise denies suicidality of voices. Remains diffusely confused the redirectable no significant behavioral problem Review of Systems Except as stated in HPI: all other systems reviewed are Neg Mental Status Examination Appearance: Appropriate Consciousness: Alert Orientation: Person Motor Activity: Normal gait Speech: Other Language: Adequate Fund of Knowledge: Inadequate Attention and Concentration: Easily Distracted Memory: Impaired Mood: Angry Affect: Irritable Thought Process & Associations: Disorganized Thought Content: Delusional Hallucination Type: None Delusion Type: Paranoid Suicidal Ideation: No Suicidal Plan: No Suicidal Intention: No Homicidal Ideation: No Homicidal Plan: No Homicidal Intention: No Insight: Poor Judgment: Poor Results Vitals/IOs Vital Signs Date Time Temp Pulse Resp B/P (MAP) Pulse Ox O2 Delivery O2 Flow Rate FiO2 02/25/17 05:41 98.1 85 18 128/56 (80) 96 Intake and Output 02/25/17 02/25/17 02/26/17 08:00 16:00 00:00 Intake Total 120 ml 120 ml Balance 120 ml 120 ml Assessment & Plan Problem List: (1) Dementia in other diseases classified elsewhere with behavioral disturbance ICD Codes: F02.81 - Dementia in other diseases classified elsewhere with behavioral disturbance (2) ALZHEIMER'S DISEASE WITH LATE ONSET ICD Codes: G30.1 - ALZHEIMER'S DISEASE WITH LATE ONSET Assessment & Plan Estimated LOS: days patient continues confused demented, though no significant behavioral problems. Continues focused on placement after discharge Justification for Cont. Inpt. This time patient will decompensate if placed in the lower level of care Discharge Planning Continue to work on placement for this gentleman Request HC Surrog/Guard Advoc?: Yes Beni Moreno MD Feb 25, 2017 11:50
[2017-02-25] MEDS: QUEtiapine FUMARATE 25 MG TAB PO SCH ×3 (12:00→22:25)
[2017-02-25] MEDS: MIRTAZAPINE 15 MG TAB PO SCH (22:24)
[2017-02-25] MEDS: diphenhydrAMINE HCL 50 MG CAP PO PRN (22:24)
[2017-02-26 06:00] VITALS: BP 139/63; PULSE 82; RESP 18; TEMP 98.2; O2SAT 96
[2017-02-26] MEDS: amLODIPine BESYLATE 5 MG TAB PO SCH (09:49)
[2017-02-26] MEDS: DOCUSATE SODIUM 100 MG CAP PO SCH ×2 (09:49→21:09)
[2017-02-26] MEDS: CHOLECALCIFEROL (VIT D3) 1000 UNIT TAB PO SCH (09:49)
[2017-02-26] MEDS: QUEtiapine FUMARATE 25 MG TAB PO SCH ×3 (12:09→21:09)
--- NOTE | 2017-02-26 15:27 | HHI.PYPN ---
Subjective Remarks Patient was seen and case discussed with nursing. Patient is alert and oriented 1. He is irritable and confused and perseverative on discharge refusing most of the interview questions. no Behavioral outbursts. Mental Status Examination Appearance: Appropriate Consciousness: Alert Orientation: Person Motor Activity: Normal gait Speech: Other Language: Adequate Fund of Knowledge: Inadequate Attention and Concentration: Easily Distracted Memory: Impaired Mood: Angry Affect: Irritable Thought Process & Associations: Disorganized Thought Content: Delusional Hallucination Type: None Delusion Type: Paranoid Suicidal Ideation: No Suicidal Plan: No Suicidal Intention: No Homicidal Ideation: No Homicidal Plan: No Homicidal Intention: No Insight: Poor Judgment: Poor Results Vitals/IOs Vital Signs Date Time Temp Pulse Resp B/P (MAP) Pulse Ox O2 Delivery O2 Flow Rate FiO2 02/26/17 06:00 98.2 82 18 139/63 (88) 96 Intake and Output 02/26/17 02/26/17 02/27/17 08:00 16:00 00:00 Intake Total 600 ml 1080 ml Balance 600 ml 1080 ml Assessment & Plan Problem List: (1) Dementia in other diseases classified elsewhere with behavioral disturbance ICD Codes: F02.81 - Dementia in other diseases classified elsewhere with behavioral disturbance (2) ALZHEIMER'S DISEASE WITH LATE ONSET ICD Codes: G30.1 - ALZHEIMER'S DISEASE WITH LATE ONSET Assessment & Plan Continue current treatment plan Justification for Cont. Inpt. Patient would decompensate in a less restrictive setting Request HC Surrog/Guard Advoc?: Yes Nicholas Mujica DO Feb 26, 2017 15:27
[2017-02-26 17:55] VITALS: BP 146/63; PULSE 112; RESP 18; TEMP 98.1; O2SAT 96
[2017-02-26] MEDS: diphenhydrAMINE HCL 50 MG CAP PO PRN (21:09)
[2017-02-26] MEDS: hydrOXYzine HCL 50 MG TAB PO PRN (21:09)
[2017-02-26] MEDS: MIRTAZAPINE 15 MG TAB PO SCH (21:09)
[2017-02-27 06:08] VITALS: BP 123/58; PULSE 88; RESP 16; TEMP 98.1; O2SAT 97
[2017-02-27] MEDS: amLODIPine BESYLATE 5 MG TAB PO SCH (08:45)
[2017-02-27] MEDS: CHOLECALCIFEROL (VIT D3) 1000 UNIT TAB PO SCH (08:45)
[2017-02-27] MEDS: DOCUSATE SODIUM 100 MG CAP PO SCH ×2 (08:45→20:53)
[2017-02-27] MEDS: QUEtiapine FUMARATE 25 MG TAB PO SCH ×3 (11:30→20:53)
[2017-02-27] MEDS: hydrOXYzine HCL 50 MG TAB PO PRN (11:30)
--- NOTE | 2017-02-27 15:56 | HHI.PYPN ---
Subjective Remarks Patient was seen and case discussed with nursing. Patient is quite irritable and confused. He refuses the interview today but had a pleasant visit with his daughter. Looking forward to discharge tomorrow. Compliant with medications Mental Status Examination Appearance: Appropriate Consciousness: Alert Orientation: Person Motor Activity: Normal gait Speech: Other Language: Adequate Fund of Knowledge: Inadequate Attention and Concentration: Easily Distracted Memory: Impaired Mood: Angry Affect: Irritable Thought Process & Associations: Disorganized Thought Content: Delusional Hallucination Type: None Delusion Type: Paranoid Suicidal Ideation: No Suicidal Plan: No Suicidal Intention: No Homicidal Ideation: No Homicidal Plan: No Homicidal Intention: No Insight: Poor Judgment: Poor Results Vitals/IOs Vital Signs Date Time Temp Pulse Resp B/P (MAP) Pulse Ox O2 Delivery O2 Flow Rate FiO2 02/27/17 06:08 98.1 88 16 123/58 (79) 97 Intake and Output 02/27/17 02/27/17 02/28/17 08:00 16:00 00:00 Intake Total 240 ml 240 ml Balance 240 ml 240 ml Assessment & Plan Problem List: (1) Dementia in other diseases classified elsewhere with behavioral disturbance ICD Codes: F02.81 - Dementia in other diseases classified elsewhere with behavioral disturbance (2) ALZHEIMER'S DISEASE WITH LATE ONSET ICD Codes: G30.1 - ALZHEIMER'S DISEASE WITH LATE ONSET Assessment & Plan Continue current treatment plan Justification for Cont. Inpt. Patient would decompensate in a less restrictive setting Request HC Surrog/Guard Advoc?: Yes Nicholas Mujica DO Feb 27, 2017 15:56
[2017-02-27 18:19] VITALS: BP 144/63; PULSE 98; RESP 17; TEMP 98.5; O2SAT 98
[2017-02-27] MEDS: diphenhydrAMINE HCL 50 MG CAP PO PRN (20:53)
[2017-02-27] MEDS: MIRTAZAPINE 15 MG TAB PO SCH (20:53)
[2017-02-28 05:47] VITALS: BP 143/63; PULSE 86; RESP 18; TEMP 98; O2SAT 98
[2017-02-28] MEDS: CHOLECALCIFEROL (VIT D3) 1000 UNIT TAB PO SCH (09:01)
[2017-02-28] MEDS: DOCUSATE SODIUM 100 MG CAP PO SCH (09:01)
[2017-02-28] MEDS: amLODIPine BESYLATE 5 MG TAB PO SCH (09:02)
--- NOTE | 2017-02-28 11:38 | HHI.PYPN ---
Subjective Remarks Patient seen on unit flushes. Patient calm cooperative no behavioral issues. Is a communication patient's family. They now are willing to take patient home with them instead of him being referred to an [facility]. Thus patient will be discharged today to family with referral to home health care for medication management and follow-up Review of Systems Except as stated in HPI: all other systems reviewed are Neg Mental Status Examination Appearance: Appropriate Consciousness: Alert Orientation: Person Motor Activity: Normal gait Speech: Other Language: Adequate Fund of Knowledge: Inadequate Attention and Concentration: Easily Distracted Memory: Impaired Mood: Angry Affect: Irritable Thought Process & Associations: Disorganized Thought Content: Delusional Hallucination Type: None Delusion Type: Paranoid Suicidal Ideation: No Suicidal Plan: No Suicidal Intention: No Homicidal Ideation: No Homicidal Plan: No Homicidal Intention: No Insight: Poor Judgment: Poor Results Vitals/IOs Vital Signs Date Time Temp Pulse Resp B/P (MAP) Pulse Ox O2 Delivery O2 Flow Rate FiO2 02/28/17 05:47 98.0 86 18 143/63 (89) 98 Intake and Output 02/28/17 02/28/17 03/01/17 08:00 16:00 00:00 Intake Total 0 ml 480 ml Balance 0 ml 480 ml Assessment & Plan Problem List: (1) Dementia in other diseases classified elsewhere with behavioral disturbance ICD Codes: F02.81 - Dementia in other diseases classified elsewhere with behavioral disturbance (2) ALZHEIMER'S DISEASE WITH LATE ONSET ICD Codes: G30.1 - ALZHEIMER'S DISEASE WITH LATE ONSET Assessment & Plan Estimated LOS: days discharged today to family Rx 1 month refer home health care Justification for Cont. Inpt. Patient to be discharged today to family Discharge Planning Associated family refer home health care Request HC Surrog/Guard Advoc?: Yes Beni Moreno MD Feb 28, 2017 11:38
[2017-02-28] MEDS: QUEtiapine FUMARATE 25 MG TAB PO SCH (12:23)
== END 2017-02-28 14:05 | disposition home or self-care (01) | DRG 57 ==
LOC: NEPD 03:46 → NEDA 16:10 → H250 21:03
PROVIDERS: ADMIT Psychiatry & Neurology Psychiatry; ATTEND Psychiatry & Neurology Psychiatry
DX: G30.1 Alzheimer's disease with late onset (principal); F02.81 Dementia in other diseases classified elsewhere, unspecified severity, with behavioral disturbance; Z91.14 Patient's other noncompliance with medication regimen; H10.9 Unspecified conjunctivitis; I10 Essential (primary) hypertension; K59.00 Constipation, unspecified; G89.29 Other chronic pain; M19.90 Unspecified osteoarthritis, unspecified site
CPT/HCPCS: 70450; 80053; 80061; 80307; 81001; 82306; 82607; 83036; 84443; 85025; 93005; 99285; J1200; J1630; J2060; Q0163